=== PATIENT | female | born 1935 | race Caucasian/White ===

== ENCOUNTER 2017-07-09 19:06 | Inpatient (IN) | payer OTHER, MEDICARE ==
[~2017-07-09] VITALS: Ht 142.2 cm; Wt 88.1 kg
[~2017-07-09 19:06] MED LIST: ASPIRIN EC81 M1 PO; CIPRO 500MG TA500 MG PO; FLOMAX(MONOGRA0.4 MG PO; LEVOTHYROXINE100 MC1 PO; LIPITOR40 M1 PO; METOPROLOL SUC100 M2 PO; PYRIDIUM200 MG PO; TRAMADOL50 MG PO; ULTRAM50 M1 PO
--- NOTE | 2017-07-09 19:28 | ED NEURO DEFICIT/STROKE ---
History of Present Illness General Chief Complaint: General Adult Stated Complaint: BIBA HYPERTENSION, L SIDED WEAKNESS Source: patient, EMS Exam Limitations: no limitations Vital Signs & Intake/Output Vital Signs & Intake/Output Vital Signs Date Time Temp Pulse Resp B/P B/P Pulse O2 O2 Flow FiO2 Mean Ox Delivery Rate 07/09 2110 98.2 67 19 185/86 99 Room Air 07/09 1942 Room Air 07/09 1929 97.6 61 22 192/92 97 Room Air Triage Note: PT BIBA FROM URGENT CARE WITH C/O HYPERTENSION AND RIGHT-SIDED NUMBNESS AND WEAKNESS THAT BEGAN YESTERDAY AND BURNING PAIN FROM THE NECK TO HEAD THAT HAS BEEN FOR APPROXIMATELY 1 WEEK. ON ARRIVAL PT IS REPORTED HYPERTENSIVE 210/PALP, IRREGULAR HR. PRESENTS WITH RIGHT HAND WEAKNESS Triage Nurses Notes Reviewed? yes Onset: Abrupt Duration: day(s): (1), constant, continues in ED Timing: recent history New Weakness: RUE, RLE Vision Problem? No Baseline: alert, oriented x 3 HPI: 82-year-old female comes into the emergency room with complaints of right-sided weakness that she noticed yesterday when she woke up. Patient reports that she felt fine the night before. When she woke up yesterday she reports that she felt weak in her right arm as well as some weakness in her right lower extremity. Some difficulty with ambulation. She has had this dull posterior headache for the past week. Denies any fever or vomiting. Denies any chest pain shortness of breath. Denies any other associated symptoms. (Magdy SANON,Hunter) Allergies Coded Allergies: morphine (UNKNOWN 07/09/17) atropine (Intermediate, HALLUCINATIONS 07/09/17) codeine (Mild, NAUSEA 07/09/17) meperidine (Mild, VOMITING 07/09/17) Reconcile Medications Aspirin (Ecotrin) 81 MG ECT 1 TAB PO DAILY HEART (Reported) Atorvastatin Calcium (Lipitor) 40 MG TABLET 1 TAB PO DAILY HIGH CHOLESTROL ( Reported) Levothyroxine Sodium 0.1 MG TAB 1 TAB PO DAILY AC THYROID (Reported) Metoprolol Succinate (Metoprolol Succinate XL) 100 MG TAB.ER.24H 1 TAB PO DAILY BP (Reported) (Janna MAKI,Aren Daniels) Past History Travel History Traveled to [place] past 21 day No Medical History Any Pertinent Medical History? see below for history Neurological: migraine EENT: cataracts Cardiovascular: hypertension, hyperlipidemia, pleurisy Respiratory: NONE Gastrointestinal: NONE Hepatic: NONE Renal: nephrolithiasis Musculoskeletal: NONE Psychiatric: NONE Endocrine: hypothyroidism, obesity Blood Disorders: NONE Cancer(s): NONE Surgical History Surgical History: appendectomy, hysterectomy, tubal ligation, 13 EYE OPERATIONS Psychosocial History Who do you live with Patient/Self Services at Home None What is your primary language Slovak Tobacco Use: Quit >30 days ago ETOH Use: occasional use Family History Family History, If Any: Relation not specified for: Unobtainable family history due to adoption Hx Contributory? No (Hunter Willard) Review of Systems Review of Systems Constitutional: Reports: no symptoms. EENTM: Reports: no symptoms. Respiratory: Reports: no symptoms. Cardiovascular: Reports: no symptoms. GI: Reports: no symptoms. Genitourinary: Reports: no symptoms. Musculoskeletal: Reports: no symptoms. Skin: Reports: no symptoms. Neurological/Psychological: Reports: see HPI. Hematologic/Endocrine: Reports: no symptoms. Immunologic/Allergic: Reports: no symptoms. All Other Systems: Reviewed and Negative (Hunter Willard) Physical Exam Physical Exam General Appearance: well developed/nourished, no apparent distress, alert, awake Head: atraumatic, normal appearance Eyes: Bilateral: normal appearance, EOMI. Ears, Nose, Throat: moist mucous membrane, hearing grossly normal Neck: normal inspection Respiratory: normal breath sounds, no respiratory distress Cardiovascular: regular rate/rhythm Gastrointestinal: soft Back: normal inspection Extremities: normal range of motion Psychiatric: awake, alert, oriented x 3 Cranial Nerves: normal hearing, normal speech, PERRL Coordination/Gait: normal gait Motor/Sensory: no motor/sensory deficits Skin: intact, normal color Core Measures CVA/TIA Diagnosis: Yes Swallow Evaluation Pass Swallow eval date 07/09/17 Swallow eval time 2140 Sepsis Present: No Sepsis Focused Exam Completed? No (Hunter Willard) Progress Differential Diagnosis: acute glaucoma, Mcarthur's Palsy, drug intoxication, electrolyte imbalance, encephalitis, hypoglycemia, intracranial Hem., intracranial mass/tumor, migraine CHEEMA, seizure disorder, stroke, subarachnoid Hem., vertebrobasilar insuff. Plan of Care: Orders Procedure Date/time Status Heart Healthy Diet 07/10 B Active Patient Data 07/09 2135 Active ED Holding Orders 07/09 2123 Active Admit to inpatient 07/09 2123 Active Vital Signs 07/09 2123 Active Code Status 07/09 2123 Active Telemetry/Adjunct Faculty 07/09 1926 Active TROPONIN LEVEL 07/09 1926 Complete PARTIAL THROMBOPLASTIN TIME 07/09 1926 Complete PROTHROMBIN TIME 07/09 1926 Complete COMPREHENSIVE METABOLIC PANEL 07/09 1926 Complete CBC WITHOUT DIFFERENTIAL 07/09 1926 Complete EKG 07/09 1926 Active Current Medications Sig/Brigitte Start time Last Medication Dose Stop Time Status Admin Hydralazine HCl 5 MG ONCE ONE 07/09 2029 CAN (Apresoline) 07/09 2030 Laboratory Tests 07/09/172039: Anion Gap 15, Estimated GFR > 60, BUN/Creatinine Ratio 25.0, Glucose 98, Calcium 9.6, Total Bilirubin 1.1, AST 35, ALT 39, Alkaline Phosphatase 122, Troponin I 0.01, Total Protein 8.2, Albumin 4.1, Globulin 4.1, Albumin/Globulin Ratio 1.0 L, PT 12.4, INR 1.18, APTT 31, CBC w Diff NO MAN DIFF REQ, RBC 5.05, MCV 88.7, MCH 29.0, MCHC 32.7 L, RDW 14.5, MPV 9.6, Gran % 51.1, Lymphocytes % 37.9, Monocytes % 8.9, Eosinophils % 1.5, Basophils % 0.6, Absolute Granulocytes 3.0, Absolute Lymphocytes 2.2, Absolute Monocytes 0.5, Absolute Eosinophils 0.1, Absolute Basophils 0 Diagnostic Imaging: Viewed by Me: CT Scan. Discussed w/RAD: CT Scan. Radiology Impression: PATIENT: AUTUMN CRUZ PRESENT AGE: 82 PATIENT ACCOUNT NO: [id number] : 37 LOCATION: [facility] ORDERING PHYSICIAN: Hunter SANON SERVICE DATE: 07/09/17 EXAM TYPE: CAT - CT HEAD WO IV CONTRAST CT HEAD WITHOUT CONTRAST CLINICAL INFORMATION: Right upper arm/right leg weakness starting yesterday. COMPARISON: Head CT 12/28/2015. TECHNIQUE: Contiguous axial imaging was performed from the skull base to vertex without intravenous administration of contrast. FINDINGS: A 1.5 cm focus of hypoattenuation within the right thalamus is increased in size. There is a lacunar infarct of indeterminate age within the left bobbi that is not seen on the prior study. There is also a focus of low-attenuation within the left ponce radiata and image 30 of series 2 that is not seen previously. Similar appearing lacunar infarct within the left thalamus. Additional small chronic lacunar infarcts in the deep blackwell nuclei bilaterally are stable. There is no dense cerebral artery sign. There is no intracranial hemorrhage, hydrocephalus, extra- axial surface collection, midline shift, or other herniation pattern. The basilar cisterns are preserved. No significant soft tissue abnormality. No acute osseous abnormality. The paranasal sinuses and the mastoid air cells are well- aerated. IMPRESSION: - Increase in size of a 1.5 cm focus of hypodensity within the right thalamus and posterior limb of the right internal capsule and interval development of lacunar infarcts of indeterminate age within the left bobbi and the left ponce radiata. MRI with and without IV contrast recommended to more definitively assess these findings given focal neurologic deficit. 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 DICTATED BY: William Cook MD DATE/TIME DICTATED:07/09/172048 BARREL LOADER:ANDRÉS DATE/TIME TRANSCRIBED:07/09/172048 CONFIDENTIAL, DO NOT COPY WITHOUT APPROPRIATE AUTHORIZATION. <Electronically signed in Other Vendor System> SIGNED BY: William Cook MD 07/09/172058 Initial ED EKG: normal sinus rhythm, rate (67), nonspecific ST T wave chg (Hunter Willard) Departure Departure Disposition: STILL A PATIENT Condition: Stable Clinical Impression Primary Impression: Acute CVA (cerebrovascular accident) Referrals: Tanvir Briones MD (PCP/Family) Departure Forms: Customer Survey General Discharge Information Admission Note Spoke With: Iva Chavez MD Documentation of Exam: Documentation of any treatments & extenuating circumstances including Concerns Regarding Discharge (functional status, medication knowledge or non-compliance, living conditions, etc.) that warrant an admission rather than observation: Patient will require neurology consultation. MRI of brain. Med management. Medically not safe for discharge. Physical therapy consultation. (Hunter Willard) PA/ARMATURE WINDER REPAIR Co-Sign Statement Statement: ED Attending supervision documentation- [X] I saw and evaluated the patient. I have also reviewed all the pertinent lab results and diagnostic results. I agree with the findings and the plan of care as documented in the PA's/ARMATURE WINDER REPAIR's documentation. X[X] I have reviewed the ED Record and agree with the PA's/ARMATURE WINDER REPAIR's documentation. [] Additions or exceptions (if any) to the PAs/ARMATURE WINDER REPAIR's note and plan are summarized below: [PT TO BE ADMITTED FOR A SUBACUTE CVA, NEURO CONSULT, PT/OT, TELE] (Janna MAKI,Aren Daniels) as documented in the PA's/ARMATURE WINDER REPAIR's documentation. X[X] I have reviewed the ED Record and agree with the PA's/ARMATURE WINDER REPAIR's documentation. [] Additions or exceptions (if any) to the PAs/ARMATURE WINDER REPAIR's note and plan are summarized below: [PT TO BE ADMITTED FOR A SUBACUTE CVA, NEURO CONSULT, PT/OT, TELE] (Janna MAKI,Aren Daniels)
[2017-07-09 20:48] LABS: ABSOLUTE BASOPHIL COUNT 0 /CUMM (0.0-0.2); ABSOLUTE EOSINOPHIL COUNT 0.1 /CUMM (0.0-0.7); ABSOLUTE LYMPH COUNT 2.2 /CUMM (1.2-3.4); ABSOLUTE MONOCYTE COUNT 0.5 /CUMM (0.10-0.60); BASOPHIL % 0.6 % (0.0-2.0); EOSINOPHIL % 1.5 % (0-5); GRANULOCYTE % 51.1 % (42.2-75.2); HEMATOCRIT 44.8 % (37-47); MEAN CORPUSCULAR HGB CONC 32.7 G/DL (33.0-37.0); MEAN CORPUSCULAR VOLUME 88.7 FL (81.0-99.0); MEAN PLATELET VOLUME 9.6 FL (7.4-10.4); PLATELET COUNT 175 /CUMM (130-400); RBC DISTRIBUTION WIDTH 14.5 % (11.5-14.5); RED BLOOD CELL CT 5.05 /CUMM (4.20-5.40); WHITE BLOOD CELL COUNT 5.9 /CUMM (4.8-10.8)
--- NOTE | 2017-07-09 20:59 | CT SCAN REPORT ---
CT HEAD WITHOUT CONTRAST CLINICAL INFORMATION: Right upper arm/right leg weakness starting yesterday. COMPARISON: Head CT 12/28/2015. TECHNIQUE: Contiguous axial imaging was performed from the skull base to vertex without intravenous administration of contrast. FINDINGS: A 1.5 cm focus of hypoattenuation within the right thalamus is increased in size. There is a lacunar infarct of indeterminate age within the left bobbi that is not seen on the prior study. There is also a focus of low-attenuation within the left ponce radiata and image 30 of series 2 that is not seen previously. Similar appearing lacunar infarct within the left thalamus. Additional small chronic lacunar infarcts in the deep blackwell nuclei bilaterally are stable. There is no dense cerebral artery sign. There is no intracranial hemorrhage, hydrocephalus, extra-axial surface collection, midline shift, or other herniation pattern. The basilar cisterns are preserved. No significant soft tissue abnormality. No acute osseous abnormality. The paranasal sinuses and the mastoid air cells are well-aerated. IMPRESSION: - Increase in size of a 1.5 cm focus of hypodensity within the right thalamus and posterior limb of the right internal capsule and interval development of lacunar infarcts of indeterminate age within the left bobbi and the left ponce radiata. MRI with and without IV contrast recommended to more definitively assess these findings given focal neurologic deficit. 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
[2017-07-09 21:00] LABS: PT 12.4 SEC (9.4-12.5); PTT 31 SEC (25-37)
--- NOTE | 2017-07-09 22:37 | History & Physical ---
Aren Cooper MD 07/09/17 2236: General Information and HPI MD Statement: I have seen and personally examined AUTUMN CRUZ and documented this H&P. The patient is a 82 year old F who presented with a patient stated chief complaint of [CVA]. Source of Information: patient Exam Limitations: no limitations History of Present Illness: Patient is an 82-year-old female with a PMH significant for HTN, HLD, hypothyroidism who presents complaining of right-sided weakness. She she was in her usual state of health when she went to sleep 2 days prior to admission. She woke up one day prior to admission with right leg weakness and numbness of the right hands second and third digit. She was able to walk while grabbing onto things around her house however her right leg felt very heavy. She also notes decreased printing specialist strength on the right hand. She delayed calling an ambulance due to the cost when her symptoms did not resolve her daughter brought her to urgent care today from which she was sent to the ED. She also reports a one-week history of a dull pain in her neck radiating up to her posterior head in the occipital area due to neck spasms. She states this is a dull intermittent pain, 3/10. She states that she normally feels her neck "cracking" this has gotten worse over the past week. She denies any visual changes or she is legally blind. She has not noticed any facial asymmetry, dysarthria, aphasia. Past History Travel History Traveled to [place] past 21 day No Medical History Neurological: migraine EENT: cataracts Cardiovascular: hypertension, hyperlipidemia, pleurisy Respiratory: NONE Gastrointestinal: NONE Hepatic: NONE Renal: nephrolithiasis Musculoskeletal: NONE Psychiatric: NONE Endocrine: hypothyroidism, obesity Blood Disorders: NONE Cancer(s): NONE Surgical History Surgical History: appendectomy, hysterectomy, tubal ligation, 13 EYE OPERATIONS Past Family/Social History Family History Relations & Conditions if any Relation not specified for: Unobtainable family history due to adoption Psychosocial History Services at Home: None Primary Language: Ukrainian Smoking Status: Former Smoker (40 pack years) ETOH Use: occasional use Illicit Drug Use: denies illicit drug use Living Will? yes Functional Ability ADLs Independent: dressing, eating, toileting, bathing. Ambulation: independent IADLs Independent: shopping, housework, finances, food prep, telephone, medication admin. Review of Systems Review of Systems Constitutional: Denies: chills, fever, malaise. EENTM: Denies: double vision, visual changes. Cardiovascular: Denies: chest pain, palpitations, syncope. Respiratory: Denies: cough, short of breath, wheezing. GI: Denies: abdominal pain, bloating, diarrhea, melena, nausea, bloody stool, vomiting. Genitourinary: Reports: no symptoms. Musculoskeletal: Reports: neck pain (spasms). Skin: Reports: no symptoms. Neurological/Psychological: Reports: ataxia, numbness (R hand 2nd and 3rd digit), weakness (RLE and R hand). Denies: confusion. Hematologic/Endocrine: Reports: no symptoms. Exam & Diagnostic Data Last 24 Hrs of Vital Signs/I&O Vital Signs Date Time Temp Pulse Resp B/P B/P Pulse O2 O2 Flow FiO2 Mean Ox Delivery Rate 07/10 0023 98.9 58 20 154/72 96 Room Air 07/09 2111 98.2 67 19 185/86 99 Room Air 07/09 1943 Room Air 07/09 1930 97.6 61 22 192/92 97 Room Air Intake & Output 07/10 0800 07/10 0000 07/09 1600 Intake Total 480 180 Output Total Balance 480 180 Intake, Oral 480 180 Patient 190 lb Weight Weight Reported by Patient Measurement Method Physical Exam General Appearance Alert, Oriented X3, Cooperative, No Acute Distress HEENT Atraumatic, PERRLA, Mucous Membr. moist/pink, nystagmus Neck Supple, No JVD, No thryomegaly, +2 Carotid Pulse wo Bruit Cardiovascular Regular Rate, Normal S1, Normal S2, No Murmurs Lungs Clear to Auscultation, Normal Air Movement Abdomen Normal Bowel Sounds, Soft, No Tenderness Neurological Normal Speech, Cranial Nerves 3-12 NL, decreased R printing specialist strength, RLE 1/5, decreased sensation on RLE and R hand 2nd and 3rd digit , dysmetria, unable to walk without assistance, while walking with assistance she has ataxic gait Extremities trade LE edema BL Vascular Normal Pulses, Pulses Symmetrical Last 24 Hrs of Labs/Georges: Laboratory Tests 07/10/17 0216: Troponin I 0.02 07/09/170: Anion Gap 15, Estimated GFR > 60, BUN/Creatinine Ratio 25.0, Glucose 98, Calcium 9.6, Total Bilirubin 1.1, AST 35, ALT 39, Alkaline Phosphatase 122, Troponin I 0.01, Total Protein 8.2, Albumin 4.1, Globulin 4.1, Albumin/Globulin Ratio 1.0 L, Triglycerides 77, Cholesterol 168, LDL Cholesterol, Calc 85, HDL Cholesterol 68 H, Cholesterol/HDL Ratio 2, Vitamin B12 882, Folate > 20.0 H, TSH 13.000 H , Free T4 1.18, PT 12.4, INR 1.18, APTT 31, CBC w Diff NO MAN DIFF REQ, RBC 5.05 , MCV 88.7, MCH 29.0, MCHC 32.7 L, RDW 14.5, MPV 9.6, Gran % 51.1, Lymphocytes % 37.9, Monocytes % 8.9, Eosinophils % 1.5, Basophils % 0.6, Absolute Granulocytes 3.0, Absolute Lymphocytes 2.2, Absolute Monocytes 0.5, Absolute Eosinophils 0.1, Absolute Basophils 0 Diagnostic Data Other Results CT head\\ - Increase in size of a 1.5 cm focus of hypodensity within the right thalamus and posterior limb of the right internal capsule and interval development of lacunar infarcts of indeterminate age within the left bobbi and the left ponce radiata. MRI with and without IV contrast recommended to more definitively assess these findings given focal neurologic deficit. 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 Assessment/Plan Assessment: Patient is an 82-year-old female with a PMH significant for HTN, HLD, hypothyroidism, [id number] smoking history but quit many years ago, who presents complaining of right-sided weakness. She has right leg weakness, decreased right hand printing specialist strength, decreased sensation of her right hands second and third digit and decreased sensation of her right lower extremity. She also disclosed nystagmus, dysmetria, ataxic gait. She is well outside the window for TPA and CT scan shows evidence of lacunar infarcts. VS on exam: T 97.6, P 61, RR 22, BP 192/92, pulse ox 97% on room air Problem list #CVA #History of HTN, HLD, hypothyroidism Plan -Admit to telemetry -Continuous telemetry monitoring -MRI with and without gadolinium -Carotid Doppler ultrasound -Neurology consult placed with mortgage loan computation clerk neurologist -Permissive hypertension -Echocardiogram -Rule out ACS with troponins and EKG -Nothing by mouth pending formal swallow eval, patient passed bedside swallow eval -Aspirin 81 mg, atorvastatin 40 mg, levothyroxine 0.1 mg, hold home dose of metoprolol for now -DVT prophylaxis: ELODIA Cardozo -CODE STATUS: DNR/DNI As Ranked By This Provider Problem List: 1. Acute CVA (cerebrovascular accident) Core Measures/Misc (02/18) Acute Coronary Syndrome ACS Diagnosis: No Congestive Heart Failure Congestive Heart Failure Diagnosis No Cerebrovascular Accident CVA/TIA Diagnosis: Yes NIH Stroke Scale: Total 4 Date Last Known Well: 07/07/17 Time Last Known Well: 2200 Symptom Start Date: 07/08/17 Symptom Start Time: 0800 Swallow Evaluation Pass Current/Past Hx AFib/AFlutter No VTE (View Protocol) VTE Risk Factors Age>40 No Mechanical VTE Prophylaxis d/t N/A MechProphylax Ordered No VTE Pharm Prophylaxis d/t NA PharmProphylax ordered Sepsis (View protocol) Sepsis Present: No Chyna Joseph MD 07/10/17 0844: General Information and HPI Allergies/Medications Allergies: Coded Allergies: shellfish derived (Severe, ANAPHYLAXIS 07/10/17) morphine (UNKNOWN 07/09/17) atropine (Intermediate, HALLUCINATIONS 07/09/17) codeine (Mild, NAUSEA 07/09/17) meperidine (Mild, VOMITING 07/09/17) Home Med list Aspirin (Ecotrin*) 81 MG TABLET.DR 1 TAB PO DAILY HEART HEALTH (Reported) Atorvastatin Calcium (Lipitor) 40 MG TABLET 1 TAB PO DAILY HIGH CHOLESTROL ( Reported) Levothyroxine Sodium 100 MCG TABLET 1 TAB PO DAILY HYPOTHYROIDISM (Reported) Metoprolol Succinate 100 MG TAB.ER.24H 1 TAB PO DAILY HTN (Reported) Resident Review Statement Resident Statement: examined this patient, discussed with investigator internal affairs Other Findings: H Ms. Cruz is an 82-year-old female with past medical history of hypertension, hyperlipidemia, hypothyroidism who presented to the emergency department on 2017 complaining of right sided weakness. She also endorsed some sensation abnormalities in her right upper extremity. Second and third digit of her hand. Patient states that her symptoms began on 07/08/2017 when she woke up in the morning. She subsequently attempted to use the bathroom however felt that "her right side" did not go with her. She subsequently thought about calling the ambulance however was concerned about the charge and cost of this and so chose not to. On Sunday07/09/2017 she asked her daughter to take her to the urgent care. Initial workup at the urgent care recommended that the patient needed to be brought to the emergency department for additional workup. She also endorses neck spasms and neck pain prior to being brought into the ED. Patient did not endorse any diplopia, dysarthria. 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 She didn't endorse some subjective shortness of breath. She also endorsed some neck spasms. E: Temperature 97.6. Respirations 22. BP 192/92. Heart rate 97. General Appearance Alert, Oriented X3, Cooperative, No Acute Distress HEENT Atraumatic, PERRLA, Mucous Membr. moist/pink. Neck Supple, No JVD, No thryomegaly, +2 Carotid Pulse wo Bruit Cardiovascular Regular Rate, Normal S1, Normal S2, No Murmurs Lungs Clear to Auscultation, Normal Air Movement Abdomen Normal Bowel Sounds, Soft, No Tenderness Neurological Normal Speech, Cranial Nerves 3-12 NL RLE 2/5, decreased sensation on RLE and R hand 2nd and 3rd digit, Ataxic gait. No Dysmetria. Horizontal nystagmus Trace edema L: WBC 5.9. H&H 14.6 and 44.8. Platelets 175. Sodium 148. Potassium 3.8. BUN 15. Creatinine 0.6. I: IMPRESSION: - Increase in size of a 1.5 cm focus of hypodensity within the right thalamus and posterior limb of the right internal capsule and interval development of lacunar infarcts of indeterminate age within the left bobbi and the left ponce radiata. MRI with and without IV contrast recommended to more definitively assess these findings given focal neurologic deficit. 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 A/P Ms. Cruz is an 82-year-old female with past medical history of hypertension, hyperlipidemia, hypothyroidism who presented to the emergency department on 2017 complaining of right sided weakness. It appears the patient has multiple risk factors, in light of the fact that the patient's symptoms have not resolved appears that she may have suffered from a CVA.Her elevated pressures on admission may indicate that she has been hypertensive contributing to lacunar infarcts. #CVA. #History of hyperlipidemia, #History of hypertension, #History of hypothyroidism. #Rule out ACS We will admit the patient to telemetry service. Assess for any rhythm abnormalities: A Fib. MRI with and without gadolinium. Carotid Dopplers. Lipid panel. Neuro checks every 4 hours. Obtain neurology consultation in a.m. Continue aspirin. Continue statin. Obtain and Echcardiogram to rule out thrombus. Avoid overaggressive correction and blood pressure now allow for permissive hypertension. Serial Troponins and EKG. PT/OT Official swallow evaluation in a.m. Bedside swallow screen did not elicit any abnormalities. DVT prophylaxis Lovenox. DNR/DNI. Iva Chavez 07/10/17 0909: Attending MD Review Statement Attending Statement Attending MD Statement: examined this patient, discuss w/resident/PA/A AND P TECHNICIAN, agreed w/resident/PA/A AND P TECHNICIAN, reviewed EMR data (avail), reviewed images, amended to note Attending Assessment/Plan: CC: Right leg weakness PMH: HTN, HLD, hypothyroidism, ex-smoker Patient came to ER for right leg weakness. Patient is basically from [place], recently moved to [place] to be around her daughter. Patient is independent and daughter checks on her. On Sunday morning she noticed right leg weakness when she woke up, she thought it would go away but it did not resolved. Along with that she noticed right hand and fingers numbness and decreased printing specialist. She had mild dizziness when she tried to get up from the bed and go to bathroom felt unsteady that's when she noticed her leg was weak. Few weeks back she had neck pain and shoulder pain which she relates to this episode. She did not have any actual falls, denies any chest pain, palpitations, double vision, blurry vision, loss of consciousness or seizure-like activity. Vitals: Temperature 97.6, pulse 60s, blood pressure 192/92, respiration 22, saturating 97% on room air On exam: A O 3, cooperative, no acute distress, neck supple, JVD normal, no lymphadenopathy, mucosa moist, horizontal nystagmus, pupils equal round reactive , right lower extremity strength 3/5, right upper extremity 4/5, no facial weakness or drooping, granulomas intact, cerebellar signs negative, Romberg's and gait could not be assessed, nonedematous leg swelling, no obvious skin rashes or inflammation CVS: S1-S2, RRR. RS: Clear to auscultate bilaterally. Abdomen: Soft, NT, ND, bowel sounds present. Labs: WBC 5.9, hemoglobin 14.6, hematocrit 44.8, platelet 175, sodium 148, potassium 3.8, chloride 105, bicarbonate 28, BUN 15, creatinine 0.6, glucose 98, calcium 9.6, LFT unremarkable, troponin 0.01, INR 1.18 CT head: - Increase in size of a 1.5 cm focus of hypodensity within the right thalamus and posterior limb of the right internal capsule and interval development of lacunar infarcts of indeterminate age within the left bobbi and the left ponce radiata. MRI with and without IV contrast recommended to more definitively assess these findings given focal neurologic deficit. 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 ECG: No acute changes Assessment and plan 82-year-old independent female with past medical history of HTN, HLD, hypothyroidism, smoking presented in ER for right-sided weakness since Sunday morning. Out of window for TPA. She has weakness on examination as mentioned above. CT scan mentions stroke and right thalamus, posterior internal capsule but there is also possibility of left pontine and ponce radiata stroke, needs further evaluation with MRI. + CVA + History of HTN, HLD, hypothyroidism - Admit on telemetry - Continuous telemetry monitoring - Serial troponin and EKG - MRI brain with and without contrast - 2-D echocardiogram in a.m. - DVT prophylaxis - Obtain lipid profile - Continue aspirin and statin - Neurologic consult - Serial neuro checks - Carotid Dopplers - Adequate pain control - OT PT evaluation - Permissive hypertension - Resume antihypertensives in a.m. - Swallow evaluation Patient is very tearful about the stroke, she also depressed that her daughter is not going to visit her as she wants to avoid flu exposure. He feels lonely, and apprehensive about going to rehabilitation if indicated.
--- NOTE | 2017-07-10 07:28 | PN- Housestaff ---
See Addendum Subjective Follow-up For: Acute stroke Complaints: no complaints Tele-Events Since Last Visit: Sinus rhythm, hr <100, occasional PVCs. Subjective: I followed up and examined the patient today. She is resting comfortably in bed , and is not in any distress, and does not have any complaints. She was able to recall her history to me, which is mostly on the right side. She does not have any headache, vision changes, incontinence, worsening of weakness, numbness/ tingling, difficulty with food. She passed her formal swallow evaluation this morning. Review of Systems Constitutional: Reports: see HPI. Objective Last 24 Hrs of Vital Signs/I&O Vital Signs Date Time Temp Pulse Resp B/P B/P Pulse O2 O2 Flow FiO2 Mean Ox Delivery Rate 07/10 1427 97.4 66 20 141/88 96 Room Air 07/10 1334 97.1 65 18 171/78 02/ 0941 97.1 65 18 171/78 96 / 0610 96.8 68 20 154/62 97 Room Air 07/10 0023 98.9 58 20 154/72 96 Room Air 07/09 2111 98.2 67 19 185/86 99 Room Air 07/09 1943 Room Air / 1930 97.6 61 22 192/92 97 Room Air Intake & Output 07/10 1600 07/10 0800 / 0000 Intake Total 1000 480 180 Output Total Balance 1000 480 180 Intake, IV 1000 Intake, Oral 480 180 Patient 86.183 kg Weight Weight Reported by Patient Measurement Method Physical Exam General Appearance: Alert, Oriented X3, Cooperative, No Acute Distress Skin: No Rashes, No Breakdown, No Significant Lesion HEENT: Atraumatic, PERRLA, EOMI, Mucous Membr. moist/pink Neck: Supple, No JVD, No thryomegaly Lymphatic: Cervical nl Cardiovascular: Regular Rate, Normal S1, Normal S2, occassional irregularities in pulse Lungs: Clear to Auscultation, Normal Air Movement Abdomen: Normal Bowel Sounds, Soft, No Tenderness Neurological: Normal Speech, Normal Tone, Cranial Nerves 3-12 NL, motor: R 3/5 upper and lower side, 5/5 on left side., sensory: decreased sensation over right side of body, normal cerebellar signs, gait not examined Extremities: No Clubbing, No Cyanosis, No Edema Vascular: Normal Pulses, Pulses Symmetrical Current Medications: Current Medications Sig/Brigitte Start time Last Medication Dose Route Stop Time Status Admin Aspirin 81 MG DAILY 07/10 1000 AC PO Aspirin 0 .STK-MED ONE 07/09 2217 DC PO Aspirin 325 MG ONCE ONE 07/09 2129 DC 07/09 PO 07/09 Atorvastatin Calcium 40 MG 1700 07/10 1700 AC PO Enoxaparin Sodium 40 MG DAILY 07/10 1000 AC SC Hydralazine HCl 0 .STK-MED ONE 07/09 2116 DC .ROUTE Hydralazine HCl 5 MG ONCE ONE 07/09 2029 CAN IV 07/09 2030 Levothyroxine Sodium 0.1 MG DAILY AC 07/10 0700 AC PO Last 24 Hrs of Lab/Georges Results Last 24 Hrs of Labs/Mics: Laboratory Tests 07/10/176: Troponin I 0.02 07/09/172039: Anion Gap 15, Estimated GFR > 60, BUN/Creatinine Ratio 25.0, Glucose 98, Calcium 9.6, Total Bilirubin 1.1, AST 35, ALT 39, Alkaline Phosphatase 122, Troponin I 0.01, Total Protein 8.2, Albumin 4.1, Globulin 4.1, Albumin/Globulin Ratio 1.0 L, Triglycerides 77, Cholesterol 168, LDL Cholesterol, Calc 85, HDL Cholesterol 68 H, Cholesterol/HDL Ratio 2, Vitamin B12 882, Folate > 20.0 H, TSH 13.000 H , Free T4 1.18, PT 12.4, INR 1.18, APTT 31, CBC w Diff NO MAN DIFF REQ, RBC 5.05 , MCV 88.7, MCH 29.0, MCHC 32.7 L, RDW 14.5, MPV 9.6, Gran % 51.1, Lymphocytes % 37.9, Monocytes % 8.9, Eosinophils % 1.5, Basophils % 0.6, Absolute Granulocytes 3.0, Absolute Lymphocytes 2.2, Absolute Monocytes 0.5, Absolute Eosinophils 0.1, Absolute Basophils 0 Assessment/Plan Assessment: 82-year-old female with past medical history of hypertension, hyperlipidemia, hypothyroidism, presented to the emergency department with complaints of right- sided weakness since past 3 days, but did not come to the hospital considering the cost of ambulance and thinking this could be a TIA. She went to urgent care clinic, where she was referred to the emergency department given her symptom and severity. In the ED, she was noted to have right-sided weakness, and a CAT scan of the head did show 1.5 cm focus of hypodensity within the right thalamus and posterior limb of the right internal capsule and interval development of lacunar infarcts of indeterminate age within the left bobbi and the left coronoid radiata. She is being managed in the telemetry floor for the following issues: Acute ischemic infarct Her clinical features, radiological findings all correlate to acute ischemic CVA. She has already crossed the window for thrombolysis with TPA thus will be managed conservatively. Neurology consultation was requested. Recommendation appreciated. Patient is now on high intensity statin, aspirin and Plavix for the time being, with a plan to change her to aspirin only in the long run. FELICITA inhibitor has been started, given her hypertension which might also prevent further lacunar infarcts which commonly is attributed to uncontrolled/long- standing hypertension. Hypertension She is now on 10 mg of lisinopril daily, will monitor her blood pressure closely , and she might get further follow-up with a brownfield redevelopment site manager after her discharge. Hypothyroidism TSH appears to be 13 high, but free T4 is within normal limits 1.18 currently. This can be monitored as an outpatient. Will continue home dose of levothyroxine for now. Will continue rest of her home medications. # Diet: regular diet # DVT prophylaxis: subcutaneous Lovenox # Code status: DNR/DNI Problem List: 1. Acute CVA (cerebrovascular accident) 2. Hypothyroid 3. Hyperlipemia 4. Hypertension Pain Ratin Pain Location: - Pain Goal: Pain 4 or less Pain Plan: PRN Tomorrow's Labs & Rationales: BEP for Na (high)
--- NOTE | 2017-07-10 09:07 | ULTRASOUND REPORT ---
EXAMINATION: US DUPLEX CAROTID AND VERTEBRAL CLINICAL INFORMATION: 82-year-old female with right lower extremity weakness and right hand numbness and weakness. COMPARISON: None TECHNIQUE: Real-time ultrasound and Doppler techniques (integrating B-mode 2D vascular images, Doppler spectral analysis and color flow Doppler imaging) were utilized to interrogate the extracranial carotid and vertebral arteries bilaterally. The degree of stenosis determined by criteria similar to NASCET. FINDINGS: 1. On the right: Plaque is present at the carotid bifurcation but velocity measurements are normal and do not suggest a stenosis of greater than 50% diameter reduction in the right ICA. The vertebral artery is patent demonstrating antegrade flow. The common carotid artery velocity is 62 cm/s. The internal carotid artery velocities are 38 cm/s systolic and 14 cm/s diastolic. The external carotid artery velocity is 69 cm/s. 2. On the left: Plaque is present at the carotid bifurcation but velocity measurements are normal and do not suggest a stenosis of greater than 50% diameter reduction in the left ICA. Limited visualization of the left vertebral artery. The common carotid artery velocity is 55 cm/s. The internal carotid artery velocities are 75 cm/s systolic and 22 cm/s diastolic. The external carotid artery velocity is 55 cm/s. IMPRESSION: Plaque is present in the internal carotid arteries but velocity measurements are normal and there is no evidence to suggest a hemodynamically significant stenosis of greater than 50% diameter reduction.
--- NOTE | 2017-07-10 09:09 | Admission Certification ---
Admission Certification Certification Statement - As attending physician, I certify that at the time of - admission, based on clinical presentation, severity of - symptoms, need for further diagnostic testing and - therapeutic interventions, and risk of adverse outcomes - without in-hospital treatment, in my clinical assessment, - this patient requires an acute hospital stay for a minimum - of two nights or longer. I have also considered psychsocial - factors such as support system, advanced age, financial - issues, cognitive issues, and failed out-patient treatments, - past re-admission history, safety of patient, and lack of - compliance as applicable. Specific rationale supporting this admission is: CVA
--- NOTE | 2017-07-10 11:10 | Cons- Neurology ---
General Information and HPI Consulting Request Date of Consult: 07/10/17 Requested By: Laila MAKI,Michelle Reason for Consult: new right-sided weakness Source of Information: patient Exam Limitations: no limitations History of Present Illness: 82-year-old right-handed woman who presents with a first time right- sided weakness. 2 days ago she developed sudden right leg weakness at her elderly living facility. being that she did not want an ambulance to be called on her behalf she didn't tell anybody and hoped it would resolve on its own. However later that day she also developed weakness and numbness in her right hand. That got her worried and so she will seek out help and ended up in the hospital. She was found to have changes on the CAT scan suggestive of a new infarction. He is known for hypertension but not hyperlipidemia or or diabetes. Not know her family history and has never smoked. All other focal deficits. As have very poor eyesight since . Of importance as that she noted that the stroke was preceded by one week of burning sharp neck pain. Allergies/Medications Allergies: Coded Allergies: shellfish derived (Severe, ANAPHYLAXIS 07/10/17) morphine (UNKNOWN 07/09/17) atropine (Intermediate, HALLUCINATIONS 07/09/17) codeine (Mild, NAUSEA 07/09/17) meperidine (Mild, VOMITING 07/09/17) Home Med List: Aspirin (Ecotrin) 81 MG ECT 1 TAB PO DAILY HEART (Reported) Atorvastatin Calcium (Lipitor) 40 MG TABLET 1 TAB PO DAILY HIGH CHOLESTROL ( Reported) Levothyroxine Sodium 0.1 MG TAB 1 TAB PO DAILY AC THYROID (Reported) Metoprolol Succinate (Metoprolol Succinate XL) 100 MG TAB.ER.24H 1 TAB PO DAILY BP (Reported) Current Medications: Current Medications Sig/Brigitte Start time Last Medication Dose Route Stop Time Status Admin Aspirin 81 MG DAILY 07/10 1000 AC 07/10 PO 0921 Aspirin 0 .STK-MED ONE 07/09 2217 DC PO Aspirin 325 MG ONCE ONE 07/09 2129 DC 07/09 PO 07/09 Atorvastatin Calcium 40 MG 1700 07/10 1700 AC PO Enoxaparin Sodium 40 MG DAILY 07/10 1000 AC 07/10 SC 0921 Hydralazine HCl 0 .STK-MED ONE 07/09 2116 DC .ROUTE Hydralazine HCl 5 MG ONCE ONE 07/09 2029 CAN IV 07/09 2030 Levothyroxine Sodium 0.1 MG DAILY AC 07/10 0700 AC 07/10 PO 0737 Review of Systems Review of Systems: As per HPI otherwise negative. Past History Travel History Traveled to [place] past 21 day No Medical History Neurological: migraine EENT: cataracts Cardiovascular: hypertension, hyperlipidemia, pleurisy Respiratory: NONE Gastrointestinal: NONE Hepatic: NONE Renal: nephrolithiasis Musculoskeletal: NONE Psychiatric: NONE Endocrine: hypothyroidism, obesity Blood Disorders: NONE Cancer(s): NONE Surgical History Surgical History: appendectomy, hysterectomy, tubal ligation, 13 EYE OPERATIONS Family History Relations & Conditions If Any: Relation not specified for: Unobtainable family history due to adoption Psychosocial History Services at Home: None Primary Language: [place] Smoking Status: Former Smoker (40 pack years) ETOH Use: occasional use Illicit Drug Use: denies illicit drug use Living Will? yes Functional Ability ADLs Independent: dressing, eating, toileting, bathing. Ambulation: independent IADLs Independent: shopping, housework, finances, food prep, telephone, medication admin. Exam & Diagnostic Data Vital Signs and I&O Vital Signs Date Time Temp Pulse Resp B/P B/P Pulse O2 O2 Flow FiO2 Mean Ox Delivery Rate 07/10 0941 97.1 65 18 171/78 96 07/10 0610 96.8 68 20 154/62 97 Room Air 07/10 0023 98.9 58 20 154/72 96 Room Air 07/09 2111 98.2 67 19 185/86 99 Room Air 07/09 1943 Room Air 07/09 1930 97.6 61 22 192/92 97 Room Air Intake & Output 07/10 1600 07/10 0800 07/10 0000 Intake Total 480 180 Output Total Balance 480 180 Intake, Oral 480 180 Patient 190 lb Weight Weight Reported by Patient Measurement Method Physical Exam: General: The patient is in no distress. Pleasant and cooperative. MSE: Alert and oriented 3. Good attention and concentration. Good short-term memory and fund of knowledge reflected through our conversation. Language is fluent with good comprehension and repetition. Cardiovascular: S1 and S2 are normal, regular rate and rhythm, and normal pedal pulses. Vision: Fundoscopic exam does not reveal any abnormalties. Visual osei are intact. Neurological: Extra ocular movements intact, NOEMI, face is symmetric, tongue midline, uvula raises equally in the midline, V1-V3 sensation to touch is intact and equal bilaterallty, sternocleidomastoid and trapezius are strong on both sides, muscles of mastication are strong. No dysarthria noted. Motor exam reveals no abnormality of strength. strength in the proximal right leg is 3 out of 5 and there is also some right arm drift with 3 out of 5 intrinsic muscle weakness in the hand. Otherwise left side strength is 5-5 throughout the distribution distally and proximally. Sensory exam field numbness on the right side of the body. Reflexes are symmetric bilaterally with upgoing toe on the right. Cerebellar exam does not reveal any dysmetria. gait deferred. Last 48 Hours of Lab Results: Laboratory Tests 07/10 07/09 0216 2040 Chemistry Sodium (137 - 145 mmol/L) 148 H Potassium (3.5 - 5.1 mmol/L) 3.8 Chloride (98 - 107 mmol/L) 105 Carbon Dioxide (22 - 30 mmol/L) 28 Anion Gap (5 - 16) 15 BUN (7 - 17 mg/dL) 15 Creatinine (0.5 - 1.0 mg/dL) 0.6 Estimated GFR (>60 ml/min) > 60 BUN/Creatinine Ratio (7 - 25 %) 25.0 Glucose (65 - 99 mg/dL) 98 Calcium (8.4 - 10.2 mg/dL) 9.6 Total Bilirubin (0.2 - 1.3 mg/dL) 1.1 AST (14 - 36 U/L) 35 ALT (9 - 52 U/L) 39 Alkaline Phosphatase (<127 U/L) 122 Troponin I (< 0.11 ng/ml) 0.02 0.01 Total Protein (6.3 - 8.2 g/dL) 8.2 Albumin (3.5 - 5.0 g/dL) 4.1 Globulin (1.9 - 4.2 gm/dL) 4.1 Albumin/Globulin Ratio (1.1 - 2.2 %) 1.0 L Triglycerides (<150 mg/dL) 77 Cholesterol (<200 MG/DL) 168 LDL Cholesterol, Calc (65 - 129 mg/dL) 85 HDL Cholesterol (40 - 60 mg/dL) 68 H Cholesterol/HDL Ratio (0.00 - 4.23 %) 2 Vitamin B12 (239 - 931 pg/mL) 882 Folate (2.76 - 20.0 ng/mL) > 20.0 H TSH (0.270 - 4.200 uIU/mL) 13.000 H Free T4 (0.85 - 1.93 ng/dL) 1.18 Coagulation PT (9.4 - 12.5 SEC) 12.4 INR (0.90 - 1.19) 1.18 APTT (25 - 37 SEC) 31 Hematology CBC w Diff NO MAN DIFF REQ WBC (4.8 - 10.8 /CUMM) 5.9 RBC (4.20 - 5.40 /CUMM) 5.05 Hgb (12.0 - 16.0 G/DL) 14.6 Hct (37 - 47 %) 44.8 MCV (81.0 - 99.0 FL) 88.7 MCH (27.0 - 31.0 PG) 29.0 MCHC (33.0 - 37.0 G/DL) 32.7 L RDW (11.5 - 14.5 %) 14.5 Plt Count (130 - 400 /CUMM) 175 MPV (7.4 - 10.4 FL) 9.6 Gran % (42.2 - 75.2 %) 51.1 Lymphocytes % (20.5 - 51.1 %) 37.9 Monocytes % (1.7 - 9.3 %) 8.9 Eosinophils % (0 - 5 %) 1.5 Basophils % (0.0 - 2.0 %) 0.6 Absolute Granulocytes (1.4 - 6.5 /CUMM) 3.0 Absolute Lymphocytes (1.2 - 3.4 /CUMM) 2.2 Absolute Monocytes (0.10 - 0.60 /CUMM) 0.5 Absolute Eosinophils (0.0 - 0.7 /CUMM) 0.1 Absolute Basophils (0.0 - 0.2 /CUMM) 0 Imaging/Other Studies: FINDINGS: A 1.5 cm focus of hypoattenuation within the right thalamus is increased in size. There is a lacunar infarct of indeterminate age within the left bobbi that is not seen on the prior study. There is also a focus of low-attenuation within the left ponce radiata and image 30 of series 2 that is not seen previously. Similar appearing lacunar infarct within the left thalamus. Additional small chronic lacunar infarcts in the deep blackwell nuclei bilaterally are stable. There is no dense cerebral artery sign. There is no intracranial hemorrhage, hydrocephalus, extra-axial surface collection, midline shift, or other herniation pattern. The basilar cisterns are preserved. No significant soft tissue abnormality. No acute osseous abnormality. The paranasal sinuses and the mastoid air cells are well-aerated. IMPRESSION: - Increase in size of a 1.5 cm focus of hypodensity within the right thalamus and posterior limb of the right internal capsule and interval development of lacunar infarcts of indeterminate age within the left bobbi and the left ponce radiata. MRI with and without IV contrast recommended to more definitively assess these findings given focal neurologic deficit. 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 Carotid Duplex>> IMPRESSION: Plaque is present in the internal carotid arteries but velocity measurements are normal and there is no evidence to suggest a hemodynamically significant stenosis of greater than 50% diameter reduction. EKG NSR with PVCs. Assessment/Plan Assessment: This is a very pleasant 82-year-old woman with according to her first time infarction. The CAT scan suggests that this may not be her first lacunar infarction. Although it could be that we see on the current CAT scan is really a manifestation of an embolic stroke into both hemispheres. Was the case on MRI would need to seek out atrial fibrillation. Her complaint of preceding burnding neck pain buys her and MRA of the neck. Recommendations: 1. Complete MRI of the brain without contrast. MRA of neck and head. 2. Complete echo ruling out a thrombus within the ventricles. 3. Telemetry, looking for atrial fibrillation. If not found would need to go on and reveal monitor for 3 months. And would suggest empirical anticoagulation if pattern and MRI suggestive of embolic phenomenon from the heart. 4. For now place on aspirin 81 mg and Plavix 75 mg. Also ensure she is on Lipitor 80 mg and potentially an FELICITA inhibitor or ARB. 5. PT/OT and swallow evaluation. Will likely need STR. Consult Acknowledgment - Thank you for your consult request.
[2017-07-10 17:21] VITALS: BP 190/90
[2017-07-10 19:28] VITALS: BP 154/96
--- NOTE | 2017-07-10 21:37 | Discharge Summary ---
Visit Information Visit Dates Admission Date: 07/09/17 Discharge Date: 07/12/17 Hospital Course Course Attending Physician: Michelle Ulloa MD Primary Care Physician: Tanvir Briones MD Hospital Course: 82-year-old female with past medical history of hypertension, hyperlipidemia, hypothyroidism, presented to the emergency department with complaints of right- sided weakness since past 3 days [facility], but did not come to the hospital considering the cost of ambulance and thinking this could be a TIA. She went to urgent care clinic, where she was referred to the emergency department given her symptom and severity. In the ED, she was noted to have right-sided weakness, and a CAT scan of the head did show 1.5 cm focus of hypodensity within the right thalamus and posterior limb of the right internal capsule and interval development of lacunar infarcts of indeterminate age within the left bobbi and the left coronoid radiata. She was managed conservatively in the telemetry floor for the following issues: # Acute ischemic infarct Her clinical features, radiological findings all correlated to acute ischemic CVA. She had already crossed the window for thrombolysis with TPA thus was managed conservatively. Neurology consultation was requested and recommendation followed. Patient is now on high intensity statin, aspirin and Plavix for the time being, with a plan to change her to aspirin only in the long run. FELICITA inhibitor has been started, given her hypertension which might also prevent further lacunar infarcts which commonly is attributed to uncontrolled/long- standing hypertension. Physical therapy worked with her, and suggested further care at a short-term rehabilitation facility. # Hypertension She is now on 10 mg of lisinopril daily, and she needs follow-up with a shell coremaker after her discharge. Her blood pressure on 07/12/2017 he was high with 190/110, which slowly settled down in a few hours after taking her regular medications early for that day. She has been advised to watch and record her blood pressure and follow-up with shell coremaker after discharge. # Hypothyroidism TSH was high at 13, but free T4 was within normal limits 1.18 during this admission. Will changed the home dose of levothyroxine from 100 mcg to 125 mcg. This can be monitored as an outpatient. Rest of her home medications were continued. # Diet: regular diet (She passed the formal swallow evaluation) # DVT prophylaxis: subcutaneous Lovenox # Code status: DNR/DNI Allergies: Coded Allergies: shellfish derived (Severe, ANAPHYLAXIS 07/10/17) morphine (UNKNOWN 07/09/17) atropine (Intermediate, HALLUCINATIONS 07/09/17) codeine (Mild, NAUSEA 07/09/17) meperidine (Mild, VOMITING 07/09/17) Significant Procedures: Head CT done on 07/09/17: FINDINGS: A 1.5 cm focus of hypoattenuation within the right thalamus is increased in size. There is a lacunar infarct of indeterminate age within the left bobbi that is not seen on the prior study. There is also a focus of low-attenuation within the left ponce radiata and image 30 of series 2 that is not seen previously. Similar appearing lacunar infarct within the left thalamus. Additional small chronic lacunar infarcts in the deep blackwell nuclei bilaterally are stable. There is no dense cerebral artery sign. There is no intracranial hemorrhage, hydrocephalus, extra-axial surface collection, midline shift, or other herniation pattern. The basilar cisterns are preserved. No significant soft tissue abnormality. No acute osseous abnormality. The paranasal sinuses and the mastoid air cells are well-aerated. IMPRESSION: - Increase in size of a 1.5 cm focus of hypodensity within the right thalamus and posterior limb of the right internal capsule and interval development of lacunar infarcts of indeterminate age within the left bobbi and the left ponce radiata. MRI with and without IV contrast recommended to more definitively assess these findings given focal neurologic deficit. 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 DICTATED BY: William Cook MD DATE/TIME DICTATED:07/09/172048 GRAIN MERCHANDISER:ANDRÉS DATE/TIME TRANSCRIBED:07/09/172048 Carotid Doppler Study of Carotid arteries done on 07/10/17: FINDINGS: 1. On the right: Plaque is present at the carotid bifurcation but velocity measurements are normal and do not suggest a stenosis of greater than 50% diameter reduction in the right ICA. The vertebral artery is patent demonstrating antegrade flow. The common carotid artery velocity is 62 cm/s. The internal carotid artery velocities are 38 cm/s systolic and 14 cm/s diastolic. The external carotid artery velocity is 69 cm/s. 2. On the left: Plaque is present at the carotid bifurcation but velocity measurements are normal and do not suggest a stenosis of greater than 50% diameter reduction in the left ICA. Limited visualization of the left vertebral artery. The common carotid artery velocity is 55 cm/s. The internal carotid artery velocities are 75 cm/s systolic and 22 cm/s diastolic. The external carotid artery velocity is 55 cm/s. IMPRESSION: Plaque is present in the internal carotid arteries but velocity measurements are normal and there is no evidence to suggest a hemodynamically significant stenosis of greater than 50% diameter reduction. DICTATED BY: Rubin Ashraf DO DATE/TIME DICTATED:07/10/17900 GRAIN MERCHANDISER:ANDRÉS DATE/TIME TRANSCRIBED:07/10/17900 MRI done on 07/11/17: FINDINGS: BRAIN MRI: A 1 cm ovoid focus of restricted diffusion is seen in the left posterior ponce radiata, correlating with an acute lacunar infarct. This is superimposed upon fairly extensive chronic microvascular ischemic change with areas of chronic lacunar infarction seen in the basal ganglia, thalami, and left paramedian bobbi. The ventricles and sulcal spaces are diffusely prominent due to chronic volume loss. No intracranial mass, hemorrhage, or midline shift is apparent. Mild mucosal thickening is noted in the ethmoid air cells and there is patchy opacification of bilateral mastoid air cells. BRAIN MRA: Expected flow-related signal seen in the major intracranial arteries. No focal flow-limiting stenosis, proximal large vessel occlusion, or discrete saccular intracranial aneurysm is identified. NECK MRA: There is probably a common origin of the innominate and left common carotid arteries. The right vertebral artery is dominant, and both are widely patent from their ostia until their entry into the skull base. Both common carotid arteries are normal in course and caliber. No significant internal carotid artery stenosis is appreciated. IMPRESSION: 1. Small acute lacunar infarct in the left ponce radiata, superimposed upon fairly extensive chronic small vessel ischemic changes. 2. Normal neck and brain MRAs. DICTATED BY: Ina Epstein MD DATE/TIME DICTATED:07/11/171645 GRAIN MERCHANDISER:ANDRÉS DATE/TIME TRANSCRIBED:07/11/171645 Disposition Summary Disposition Principal Diagnosis: Acute CVA (Ischemic) Additional Diagnosis: hypertension, hyperlipidemia, hypothyroidism Discharge Disposition: SNF Discharge Instructions General Discharge Information Code Status: Do Not Resucitate/Intubat Patient's Diet: Heart healthy diet Patient's Activity: As tolerated. Requires physical therapy. Follow-Up Instructions/Appts: Please follow-up with your neurologist AND shell coremaker and PCP after discharge. Please return to emergency if symptoms worsen. Medications at Discharge Discharge Medications: Stop taking the following medications: Levothyroxine Sodium (Levothyroxine Sodium) 100 MCG TABLET ORAL DAILY Continue taking these medications: Metoprolol Succinate (Metoprolol Succinate) 100 MG TAB.ER.24H 1 Tablet ORAL DAILY Comments: Last Taken:07/12/17 Time:9AM Aspirin (Ecotrin*) 81 MG TABLET.DR 1 Tablet ORAL DAILY Comments: Last Taken:07/12/17 Time:9AM Start taking the following new medications: Clopidogrel Bisulfate (Plavix) 75 MG TABLET 75 Milligram ORAL DAILY Qty = 30 No Refills Comments: Last Taken:07/12/17 Time:9AM Lisinopril (Lisinopril) 10 MG TABLET 10 Milligram ORAL DAILY as needed for HTN Qty = 30 Refills = 1 Comments: Last Taken:07/12/17 Time:9AM Levothyroxine Sodium (Synthroid) 125 MCG TABLET 1 Tablet ORAL DAILY BEFORE BREAKFAST Qty = 60 Refills = 1 Comments: Last Taken:07/12/17 Time:6AM The following medications have been changed: Old: Atorvastatin Calcium (Lipitor) 40 MG TABLET 1 Tablet ORAL DAILY New: Atorvastatin Calcium (Lipitor) 40 MG TABLET 2 Tablet ORAL DAILY Qty = 60 Comments: Last Taken:07/11/17 Time:5PM Copies To: Maria Del Carmen MAKI,Tra; Anselmo MAKI,Tanvir Varela; Dez MAKI PHD,Niko Benjamin Attending MD Review Statement Documenting Attending: Michelle Ulloa MD Other Findings: Discharged in stable condition
[2017-07-10 22:28] VITALS: BP 154/88
[2017-07-11 07:08] VITALS: BP 142/70
--- NOTE | 2017-07-11 07:33 | PN- Housestaff ---
Subjective Follow-up For: Acute stroke Complaints: no complaints Tele-Events Since Last Visit: Regular sinus rhythm with some PVCs, rate in 70s Subjective: I followed up and examined the patient today. She was resting comfortably in bed, not in apparent distress, and did not have any complaints. In fact, she mentioned that she feels that her right side is much stronger than yesterday. She does not have any numbness over her face anymore. Vital signs stable, no nursing issues reported overnight. Review of Systems Constitutional: Reports: see HPI. Objective Last 24 Hrs of Vital Signs/I&O Vital Signs Date Time Temp Pulse Resp B/P B/P Pulse O2 O2 Flow FiO2 Mean Ox Delivery Rate 07/11 1321 Room Air 07/11 0937 81 07/11 0708 98.3 58 20 142/70 96 Room Air 07/10 2228 98.0 76 20 154/88 96 Room Air 07/10 1928 72 154/96 92 Room Air 07/10 1800 Room Air 07/10 1721 97.9 94 20 190/90 97 07/10 1609 98.1 72 16 191/84 96 Room Air 07/10 1555 152/84 07/10 1427 97.4 66 20 141/88 96 Room Air Intake & Output 07/11 1600 07/11 0800 07/11 0000 Intake Total 110 400 Output Total Balance 110 400 Intake, IV 10 Intake, Oral 100 400 Number 0 Bowel Movements Patient 88.139 kg Weight Weight Bed scale Measurement Method Physical Exam General Appearance: Alert, Oriented X3, Cooperative, No Acute Distress, obese Other Physical Findings: Skin: No Rashes, No Breakdown, No Significant Lesion HEENT: Atraumatic, PERRLA, EOMI, Mucous Membr. moist/pink Neck: Supple, No JVD, No thryomegaly Lymphatic: Cervical nl Cardiovascular: Regular Rate, Normal S1, Normal S2, occassional irregularities in pulse Lungs: Clear to Auscultation, Normal Air Movement Abdomen: Normal Bowel Sounds, Soft, No Tenderness Neurological: Normal Speech, Normal Tone, Cranial Nerves 3-12 NL, motor: R 3+/5 upper and lower side, 5/5 on left side., sensory: decreased sensation over right side of body, sensation over the face is normal now (c.f. yesterday). Normal cerebellar signs, gait not examined Extremities: No Clubbing, No Cyanosis, No Edema Vascular: Normal Pulses, Pulses Symmetrical Current Medications: Current Medications Sig/Brigitte Start time Last Medication Dose Route Stop Time Status Admin Aspirin 81 MG DAILY 07/10 1000 AC 07/11 PO 0936 Atorvastatin Calcium 80 MG 1700 07/10 1700 AC 07/10 PO 1754 Clopidogrel Bisulfate 75 MG DAILY 07/10 1315 AC 07/11 PO 0936 Enoxaparin Sodium 40 MG DAILY 07/10 1000 AC 07/11 SC 0936 Influenza Virus 0.5 ML ONCE ONE 07/10 2044 DC Vaccine IM 07/10 2045 Levothyroxine Sodium 0.1 MG DAILY AC 07/10 0700 AC 07/11 PO 0632 Lisinopril 10 MG DAILY 07/10 1310 AC 07/11 PO 0937 Metoprolol Succinate 100 MG DAILY 07/11 1000 AC 07/11 PO 0937 Last 24 Hrs of Lab/Georges Results Last 24 Hrs of Labs/Mics: Laboratory Tests 07/11/17 0703: Anion Gap 10, Estimated GFR > 60, BUN/Creatinine Ratio 24.3 Assessment/Plan Assessment: 82-year-old female with past medical history of hypertension, hyperlipidemia, hypothyroidism, presented to the emergency department with complaints of right- sided weakness since past 3 days, but did not come to the hospital considering the cost of ambulance and thinking this could be a TIA. She went to urgent care clinic, where she was referred to the emergency department given her symptom and severity. In the ED, she was noted to have right-sided weakness, and a CAT scan of the head did show 1.5 cm focus of hypodensity within the right thalamus and posterior limb of the right internal capsule and interval development of lacunar infarcts of indeterminate age within the left bobbi and the left coronoid radiata. She is being managed in the telemetry floor for the following issues: Acute ischemic infarct Her clinical features, radiological findings all correlate to acute ischemic CVA. She has already crossed the window for thrombolysis with TPA thus will be managed conservatively. Neurology consultation was requested. Recommendation appreciated. Patient is now on high intensity statin, aspirin and Plavix for the time being, with a plan to change her to aspirin only in the long run. FELICITA inhibitor has been started, given her hypertension which might also prevent further lacunar infarcts which commonly is attributed to uncontrolled/long- standing hypertension. Patient is getting an MRI, MRA today, awaiting results. Hypertension She is now on 10 mg of lisinopril daily, will monitor her blood pressure closely , and she might get further follow-up with a rn perinatal after her discharge. Her blood pressure today is 142/70. Hypothyroidism TSH appears to be 13 high, but free T4 is within normal limits 1.18 currently. This can be monitored as an outpatient. Will change home dose of levothyroxine 100 mcg to 125 mcg daily. Will continue rest of her home medications. # Diet: regular diet # DVT prophylaxis: subcutaneous Lovenox # Code status: DNR/DNI Problem List: 1. Acute CVA (cerebrovascular accident) 2. Hypertension 3. Hypothyroid Pain Ratin Pain Location: - Pain Goal: Pain 4 or less Pain Plan: prn Tomorrow's Labs & Rationales: -
[2017-07-11] MEDS ORDERED: PLAVIX75 M1 PO (10:34)
[2017-07-11] MEDS ORDERED: LIPITOR40 M1 PO (10:34)
[2017-07-11] MEDS ORDERED: LISINOPRIL10 M1 PO (10:34)
[2017-07-11 14:47] VITALS: BP 130/70
--- NOTE | 2017-07-11 16:18 | ECHOCARDIOGRAM REPORT ---
AUTUMN CRUZ Age: 82 : 1935 Gender: F Exam Date: 07/10/2017 18:20 Exam Location: [address] Ht (in): 56 Wt (lb): 190 BSA: 1.90 BP: 154 / 62 Ordering Physician: Aren Cooper MD Referring Physician: Alfonso Brennan MD Technologist: Nataliia Gomez [facility] Room Number: 174-02 Indications: STROKE Rhythm: Sinus Technical Quality: Technically difficult study FINDINGS Left Ventricle Normal size left ventricle. Mild concentric left ventricular hypertrophy. Normal left ventricular ejection fraction visually estimated at >60%. Abnormal relaxation filling pattern of the left ventricle for age (stage 1 diastolic dysfunction). No obvious regional wall motion abnormalities. Right Ventricle Normal right ventricular size and function. Right Atrium Normal right atrial size. Left Atrium Normal left atrial size. Mitral Valve Mild to moderate mitral annular calcification. Trace mitral regurgitation. Aortic Valve Diffuse thickening (sclerosis) of the aortic valve cusps without reduced excursion. No aortic stenosis. No aortic regurgitation. Tricuspid Valve Tricuspid valve not well visualized, grossly normal. Trace tricuspid regurgitation. No evidence of pulmonary hypertension. Pulmonic Valve Pulmonic valve not well visualized, grossly normal. Pericardium No pericardial effusion. Great Vessels Normal size aortic root. CONCLUSIONS Normal size left ventricle. Mild concentric left ventricular hypertrophy. Normal left ventricular ejection fraction visually estimated at > 60%. Abnormal relaxation filling pattern of the left ventricle for age (stage 1 diastolic dysfunction). Trace mitral regurgitation. Trace tricuspid regurgitation. Alfonso Brennan M.D. (Electronically Signed) Final Date: 11 July 2017 16:18 MEASUREMENTS (Male / Female) Normal Values 2D ECHO LV Diastolic Diameter PLAX 4.1 cm 4.2 - 5.9 / 3.9 - 5.3 cm LV Systolic Diameter PLAX 2.7 cm 2.1 - 4.0 cm LV Fractional Shortening PLAX 34.1 % 25 - 46 % LV Ejection Fraction 2D Teich 63.6 % IVS Diastolic Thickness 1.3 cm LVPW Diastolic Thickness 1.3 cm LV Relative Wall Thickness 0.6 RV Internal Dim ED PLAX 2.2 cm 1.9 - 3.8 cm LVOT Diameter 2.1 cm Aortic Root Diameter 3.2 cm LA Systolic Diameter LX 4.0 cm 3.0 - 4.0 / 2.7 - 3.8 cm LA Volume 23.0 cm 18 - 58 / 22 - 52 cm Ascending Aorta Diameter 3.4 cm DOPPLER AV Peak Velocity 163.0 cm/s AV Peak Gradient 10.6 mmHg AV Mean Velocity 115.0 cm/s AV Mean Gradient 6.0 mmHg AV Velocity Time Integral 28.5 cm LVOT Peak Velocity 90.2 cm/s LVOT Peak Gradient 3.3 mmHg LVOT Mean Velocity 59.5 cm/s LVOT Mean Gradient 2.0 mmHg LVOT Velocity Time Integral 14.5 cm LVOT Stroke Volume 50.2 cm AV Area Cont Eq vti 1.8 cm AV Area Cont Eq pk 1.9 cm MV Peak Velocity 113.0 cm/s MV Peak Gradient 5.1 mmHg MV Mean Velocity 52.0 cm/s MV Mean Gradient 1.0 mmHg Mitral E Point Velocity 48.9 cm/s Mitral A Point Velocity 88.8 cm/s Mitral E to A Ratio 0.6 MV PHT Velocity 62.1 cm/s MV Deceleration Stewart 244.0 cm/s MV Pressure Half Time 76.4 ms MV Area PHT 2.9 cm MV Deceleration Time 296.0 ms TR Peak Velocity 217.0 cm/s TR Peak Gradient 18.8 mmHg Right Atrial Pressure 5.0 mmHg Pulmonary Artery Systolic Pressu 23.8 mmHg Right Ventricular Systolic Press 23.8 mmHg PV Peak Velocity 112.0 cm/s PV Peak Gradient 5.0 mmHg PV Mean Velocity 73.9 cm/s PV Mean Gradient 3.0 mmHg PV Velocity Time Integral 18.4 cm LV E' Lateral Velocity 6.5 cm/s Mitral E to LV E' Lateral Ratio 7.5 LV E' Septal Velocity 4.4 cm/s Mitral E to LV E' Septal Ratio 11.1
--- NOTE | 2017-07-11 16:57 | MRI REPORT ---
EXAMINATION: MR BRAIN WITHOUT CONTRAST MR ANGIOGRAPHY BRAIN WITHOUT CONTRAST MR ANGIOGRAPHY NECK WITHOUT CONTRAST CLINICAL INFORMATION: 82-year-old woman with improving right-sided weakness. COMPARISON: 07/09/[address] TECHNIQUE: Multiplanar, multisequence MR imaging was performed through the brain without the use of intravenous gadolinium. In addition, [id number] MR angiography was performed through the neck and brain without the use of intravenous contrast, and source images were reviewed along with rotating MIPs. Stenoses are assessed in accordance with NASCET criteria unless otherwise indicated. FINDINGS: BRAIN MRI: A 1 cm ovoid focus of restricted diffusion is seen in the left posterior ponce radiata, correlating with an acute lacunar infarct. This is superimposed upon fairly extensive chronic microvascular ischemic change with areas of chronic lacunar infarction seen in the basal ganglia, thalami, and left paramedian bobbi. The ventricles and sulcal spaces are diffusely prominent due to chronic volume loss. No intracranial mass, hemorrhage, or midline shift is apparent. Mild mucosal thickening is noted in the ethmoid air cells and there is patchy opacification of bilateral mastoid air cells. BRAIN MRA: Expected flow-related signal seen in the major intracranial arteries. No focal flow-limiting stenosis, proximal large vessel occlusion, or discrete saccular intracranial aneurysm is identified. NECK MRA: There is probably a common origin of the innominate and left common carotid arteries. The right vertebral artery is dominant, and both are widely patent from their ostia until their entry into the skull base. Both common carotid arteries are normal in course and caliber. No significant internal carotid artery stenosis is appreciated. IMPRESSION: 1. Small acute lacunar infarct in the left ponce radiata, superimposed upon fairly extensive chronic small vessel ischemic changes. 2. Normal neck and brain MRAs.
[2017-07-11 22:08] VITALS: BP 130/80
[2017-07-12 06:57] VITALS: BP 160/90
[2017-07-12 06:59] VITALS: BP 190/110
--- NOTE | 2017-07-12 07:35 | PN- Housestaff ---
Jessie MAKI,Robbin 07/12/17 0735: Subjective Follow-up For: Acute stroke Complaints: no complaints Tele-Events Since Last Visit: Regular sinus rhythm, some PVCs noted overnight, heart rate ranging from 60s to 90s. Subjective: I followed up and examined the patient today. She is resting comfortably in her bed, does not have any complaints, does not appear to be in any distress. Her motor strength on the right side just about the same as yesterday. Vital signs normal, except that her blood pressure this morning was elevated at 190/110 and she received her blood pressure medications earlier than usual. NOT symptomatic or hemodynamically unstable. Review of Systems Constitutional: Reports: no symptoms. Objective Last 24 Hrs of Vital Signs/I&O Vital Signs Date Time Temp Pulse Resp B/P B/P Pulse O2 O2 Flow FiO2 Mean Ox Delivery Rate 07/12 1357 62 132/76 07/12 0744 61 190/110 07/12 0659 61 190/110 07/12 0657 97.9 62 20 160/90 96 Room Air 07/12 0539 62 160/90 07/11 2208 98.3 98 20 130/80 95 Room Air Intake & Output 07/12 1600 07/12 0800 07/12 0000 Intake Total 380 120 Output Total 250 Balance 380 -130 Intake, Oral 380 120 Output, Urine 250 Physical Exam General Appearance: Alert, Oriented X3, Cooperative, No Acute Distress, obese Other Physical Findings: Skin: No Rashes, No Breakdown, No Significant Lesion HEENT: Atraumatic, PERRLA, EOMI, Mucous Membr. moist/pink Neck: Supple, No JVD, No thryomegaly Lymphatic: Cervical nl Cardiovascular: Regular Rate, Normal S1, Normal S2, occassional irregularities in pulse Lungs: Clear to Auscultation, Normal Air Movement Abdomen: Normal Bowel Sounds, Soft, No Tenderness Neurological: Normal Speech, Normal Tone, Cranial Nerves 3-12 NL, motor: R 3+/5 upper and lower side, 5/5 on left side., sensory: decreased sensation over right side of body, sensation over the face is normal now (same as yesterday). Normal cerebellar signs, gait not examined. Extremities: No Clubbing, No Cyanosis, No Edema Vascular: Normal Pulses, Pulses Symmetrical Current Medications: Current Medications Sig/Brigitte Start time Last Medication Dose Route Stop Time Status Admin Aspirin 81 MG DAILY 07/10 1000 DCD 07/12 PO 0743 Atorvastatin Calcium 80 MG 1700 07/10 1700 DCD 07/11 PO 1654 Clopidogrel Bisulfate 75 MG DAILY 07/10 1315 DCD 07/12 PO 0743 Enoxaparin Sodium 40 MG DAILY 07/10 1000 DCD 07/12 SC 0745 Levothyroxine Sodium 0.125 MG DAILY AC 07/12 0700 DCD 07/12 PO 0505 Lisinopril 10 MG DAILY 07/10 1310 DCD 07/12 PO 0539 Metoprolol Succinate 100 MG DAILY 07/11 1000 DCD 07/12 PO 0744 Senna/Docusate Sodium 2 TAB DAILY 07/11 1715 DCD 07/12 PO 0744 Assessment/Plan Assessment: 82-year-old female with past medical history of hypertension, hyperlipidemia, hypothyroidism, presented to the emergency department with complaints of right- sided weakness since past 3 days, but did not come to the hospital considering the cost of ambulance and thinking this could be a TIA. She went to urgent care clinic, where she was referred to the emergency department given her symptom and severity. In the ED, she was noted to have right-sided weakness, and a CAT scan of the head did show 1.5 cm focus of hypodensity within the right thalamus and posterior limb of the right internal capsule and interval development of lacunar infarcts of indeterminate age within the left bobbi and the left coronoid radiata. She is being managed in the telemetry floor for the following issues: Acute ischemic infarct Her clinical features, radiological findings all correlate to acute ischemic CVA. She has already crossed the window for thrombolysis with TPA thus will be managed conservatively. Neurology consultation was requested. Recommendation appreciated. Patient is now on high intensity statin, aspirin and Plavix for the time being, with a plan to change her to aspirin only in the long run. FELICITA inhibitor has been started, given her hypertension which might also prevent further lacunar infarcts which commonly is attributed to uncontrolled/long- standing hypertension. Patient's MRI of the brain showed left-sided acute ischemic infarct, and extensive chronic microvascular changes throughout the brain. Physical therapist assessed her to be discharged to a short-term rehabilitation facility for further physical therapy. She is being discharged to [facility] today accordingly. Hypertension She is now on 10 mg of lisinopril daily and metoprolol succinate, which is her home medication. She has to follow-up with a label stamper after her discharge. Her blood pressure this morning went up to 190/110 without any other symptoms except nausea which she attributed to her hunger, and after getting her medications slightly earlier, normalized to 132/76. Hypothyroidism TSH appears to be 13 high, but free T4 is within normal limits 1.18 currently. This can be monitored as an outpatient. We changed her home dose of levothyroxine 100 mcg to 125 mcg daily. Will continue rest of her home medications. She needs to follow-up with the neurologist and label stamper besides her primary care provider after discharge as well. # Diet: regular diet # DVT prophylaxis: subcutaneous Lovenox # Code status: DNR/DNI Problem List: 1. Acute CVA (cerebrovascular accident) 2. Hypertension 3. Hyperlipemia Pain Ratin Pain Location: - Pain Goal: Pain 4 or less Pain Plan: prn Tomorrow's Labs & Rationales: - Michelle Ulloa MD 07/12/17 1207: Attending MD Review Statement Attending Statement Attending MD Statement: examined this patient, discuss w/resident/PA/FORM [employer], agreed w/resident/PA/[employer], reviewed EMR data (avail), discussed with nursing, discussed with case mgmt, amended to note Attending Assessment/Plan: Patient seen and examined. Resting comfortably not in any acute distress. No issues overnight. No new complaints this morning. No change in her neurologic deficits on examination. MRI done yesterday confirms the presence of a lacunar infarct involving the left ponce radiata. In addition she has extensive chronic small vessel ischemic changes. Symptoms are likely related to atherosclerotic disease and hypertension. She has no evidence of atrial fibrillation on telemetry monitoring. Blood pressure has been controlled with lisinopril and metoprolol. Blood pressure is elevated in the morning but improves with administration of medication. She is medically stable to be discharged once a bed is available at a group home facility for short-term rehabilitation. Recommend outpatient cardiology follow-up for prolonged cardiac monitoring to rule out underlying paroxysmal atrial fibrillation. Synthroid dose has been increased with recommendations for repeat TSH as an outpatient.
--- NOTE | 2017-07-12 07:40 | Patient Discharge Instructions ---
Discharge Instructions General Discharge Information You were seen/treated for: Acute ischemic stroke Special Instructions: Please follow-up with your neurologist, supervisor typesetting, and PCP after discharge. Please return to emergency if symptoms worsen. Diet Continue normal diet: Yes Recommended Diet: Heart Healthy Activity Full Activity/No Limits: No Activity Self Limited: Yes Acute Coronary Syndrome Inclusion Criteria At DC or during hospital stay patient has or had the following: ACS DIAGNOSIS No Discharge Core Measures Meds if any: Prescribed or Continued at Discharge Meds if any: NOT Prescribed or Continued at Discharge Congestive Heart Failure Inclusion Criteria At DC or during hospital stay patient has or had the following: CHF DIAGNOSIS No Discharge Core Measures Meds if any: Prescribed or Continued at Discharge Meds if any: NOT Prescribed or Continued at Discharge Cerebrovascular accident Inclusion Criteria At DC or during hospital stay patient has or had the following: CVA/TIA Diagnosis Yes Discharge Core Measures Meds if any: Prescribed or Continued at Discharge Antithrombotic No Statin (required if LDL =>70) Yes Anticoagulant Yes (aspirin, plavix.) Meds if any: NOT Prescribed or Continued at Discharge No Antithrombotic d/t Medical Contraindication (outside tpa window) Comment no other anticoagulant indicat Venous thromboembolism Inclusion Criteria VTE Diagnosis No VTE Type NONE VTE Confirmed by (Test) NONE Discharge Core Measures - Per Current guidelines, there needs to be overlap - treatment for the first 5 days of Warfarin therapy. - If discharged on Warfarin prior to 5 days of - overlap therapy, the patient will need to be - assessed for post discharge needs including - *Post discharge parental anticoagulation - *Warfarin and/or parental anticoagulation education - *Follow up date to check INR post discharge At least 5 days overlap therapy as Inpatient No Meds if any: Prescribed or Continued at Discharge Note: Overlap Therapy is Warfarin and Anticoagulant Meds if any: NOT Prescribed or Continued at Discharge
[2017-07-12] MEDS ORDERED: SYNTHROID125 MCG PO (07:51)
[2017-07-12 13:57] VITALS: BP 132/76
== END 2017-07-12 15:00 | DRG 65 ==
LOC: ERH 19:06 → ERHI 21:24 → 1NO 21:24 → ERHI 07-10 08:22 → ENRESERV 07-10 14:42 → CANRESERV 07-10 14:42 → ENRESERV 07-10 14:43 → ENTRNSPT 07-10 16:30 → EDTRNSPT 07-10 16:48 → EDTRNSPTSTS 07-10 16:48 → 1NO 07-10 16:55 → CMPTRNSPT 07-10 17:04 → 1NO 07-11 09:51 → ENPENDDIS 07-12 12:10 → 1NO 07-12 15:00
PROVIDERS: Physician Assistant Medical
DX: I63.40 Cerebral infarction due to embolism of unspecified cerebral artery (principal); G81.91 Hemiplegia, unspecified affecting right dominant side; Z68.41 Body mass index [BMI] 40.0-44.9, adult; E66.9 Obesity, unspecified; E03.9 Hypothyroidism, unspecified; I10 Essential (primary) hypertension; E78.5 Hyperlipidemia, unspecified; Z87.891 Personal history of nicotine dependence; Z66 Do not resuscitate
CPT/HCPCS: 1NSP; 70551; 70555; 70557; ERO; 36415; 82436; 93005; 93010; 93306; 97110-GO; 97112-GO; 97116-GO; 97161-GP; 97165-GO; 97530-GO; J0360; J1650; J3490; J7508

== ENCOUNTER 2017-08-10 10:02 | Inpatient (IN) | payer OTHER, MEDICARE ==
[~2017-08-10] VITALS: Ht 142.2 cm; Wt 82.7 kg
[~2017-08-10 10:02] MED LIST changes: +LISINOPRIL10 M1 PO; +PLAVIX75 M1 PO; +SYNTHROID125 MCG PO
[2017-08-10] MEDS ORDERED: PRINIVIL20 M1 PO (10:15)
[2017-08-10] MEDS ORDERED: ZANTAC150 M1 PO (10:16)
[2017-08-10] MEDS ORDERED: VITAMIN D350000 UNIT PO (10:17)
[2017-08-10 11:07] LABS: ABSOLUTE BASOPHIL COUNT 0 /CUMM (0.0-0.2); ABSOLUTE EOSINOPHIL COUNT 0.1 /CUMM (0.0-0.7); ABSOLUTE GRANULOCYTE CT 2.1 /CUMM (1.4-6.5); ABSOLUTE LYMPH COUNT 1.3 /CUMM (1.2-3.4); ABSOLUTE MONOCYTE COUNT 0.4 /CUMM (0.10-0.60); BASOPHIL % 0.6 % (0.0-2.0); EOSINOPHIL % 3.5 % (0-5); GRANULOCYTE % 53.3 % (42.2-75.2); HEMATOCRIT 40.8 % (37-47); MEAN CORPUSCULAR HGB 29.3 PG (27.0-31.0); MEAN CORPUSCULAR HGB CONC 33.1 G/DL (33.0-37.0); MEAN CORPUSCULAR VOLUME 88.5 FL (81.0-99.0); MEAN PLATELET VOLUME 10.5 FL (7.4-10.4); PLATELET COUNT 164 /CUMM (130-400); RBC DISTRIBUTION WIDTH 14.6 % (11.5-14.5); RED BLOOD CELL CT 4.61 /CUMM (4.20-5.40); WHITE BLOOD CELL COUNT 3.9 /CUMM (4.8-10.8)
--- NOTE | 2017-08-10 11:10 | ED CARDIAC/CP/PALPITATIONS ---
History of Present Illness General Chief Complaint: Chest Pain Stated Complaint: BIBA CHEST TIGHTNESS Source: patient, old records, EMS Exam Limitations: no limitations Vital Signs & Intake/Output Vital Signs & Intake/Output Vital Signs Date Time Temp Pulse Resp B/P B/P Pulse O2 O2 Flow FiO2 Mean Ox Delivery Rate 08/10 1411 97.5 59 20 180/90 96 08/10 1136 97.1 56 18 152/70 96 Nasal 2.0L Cannula 08/10 1042 98 Nasal 2.0L Cannula 08/10 1007 97.9 69 18 186/94 96 Room Air Allergies Coded Allergies: shellfish derived (Severe, ANAPHYLAXIS 07/10/17) morphine (UNKNOWN 07/09/17) atropine (Intermediate, HALLUCINATIONS 07/09/17) codeine (Mild, NAUSEA 07/09/17) meperidine (Mild, VOMITING 07/09/17) Reconcile Medications Aspirin (Ecotrin*) 81 MG TABLET.DR 1 TAB PO DAILY HEART HEALTH (Reported) Atorvastatin Calcium (Lipitor) 40 MG TABLET 2 TAB PO DAILY HIGH CHOLESTROL Cholecalciferol (Vitamin D3) (Vitamin D3) 50,000 UNIT CAPSULE 1 TAB PO ONCE A WEEK SUPPPLEMENT (Reported) TAKE ON Clopidogrel Bisulfate (Plavix) 75 MG TABLET 75 MG PO DAILY ANTIPLATELET, FOR PREVENTION Levothyroxine Sodium (Synthroid) 125 MCG TABLET 1 TAB PO DAILY AC HYPOTHYROIDISM Lisinopril (Prinivil) 20 MG TABLET 1 TAB PO DAILY HTN (Reported) Metoprolol Succinate 100 MG TAB.ER.24H 1 TAB PO DAILY HTN (Reported) Ranitidine HCl (Zantac) 150 MG TABLET 1 TAB PO DAILY HEARTBURN (Reported) Triage Note: PT BIBA FROM [facility]. STATES AT AROUND 2AM SHE STARTED TO FEEL PALPITATIONS AND SOME SHORTNESS OF BREATH. REPORTS THAT SHE WAS HERE X3 WEEKS AGO AND DX WITH A STROKE AND STILL HAS SOME RESIDUAL RIGHT SIDED WEAKNESS FROM THAT. PT HAS A HX OF AFIB. STATES IT FEELS LIKE HER HEART IS "FLUTTERING" NOW. PT WAS C/O 9/10 CHEST TIGHTNESS, EMS ADMINISTERED 2 NITRO SL AND PAIN WENT TO A 0. PT ARRIVED TO ED AND PAIN IS BACK TO A 3/10 CURRENTLY. Onset: Abrupt Duration: hour(s): (9) Timing: multiple episodes today Location: central HPI: 82 year old female with history of Afib, CVA last month, residual right sided weakness who presents to the ER for chief complint of shortness of breath for the past one week. She is recently discharged from [facility] one week ago. This morning she awoke with sob, chest tightness and pressure at 2 am from sleep. Pain was 6/10. Patient reports incontinence. She reports diminished appetite, headache. When the sob and chest pain persisted she decided to call EMS. Patient states that the pain is now mild. She was given 2 SL nitroglycerin and now reports pain is better but states that she feels escalating again. No history of similar symptoms in the past. No history of previous NE or stent. She just saw Dr. Brennan on Sunday and was told to come back to his office next week after taking medications from [facility].No fever, chills, nausea, vomiting diarrhea. Past History Travel History Traveled to [facility] past 21 day No Medical History Any Pertinent Medical History? see below for history Neurological: migraine EENT: cataracts Cardiovascular: hypertension, hyperlipidemia, pleurisy Respiratory: NONE Gastrointestinal: NONE Hepatic: NONE Renal: nephrolithiasis Musculoskeletal: NONE Psychiatric: NONE Endocrine: hypothyroidism, obesity Blood Disorders: NONE Cancer(s): NONE SUPERVISOR TUBING/Reproductive: HYSTERECTOMY History of MRSA: No History of VRE: No History of CDIFF: No Surgical History Surgical History: appendectomy, hysterectomy, tubal ligation, 13 EYE OPERATIONS Psychosocial History Who do you live with Patient/Self Services at Home None What is your primary language [place] Tobacco Use: Never used Family History Family History, If Any: Relation not specified for: Unobtainable family history due to adoption Review of Systems Review of Systems Constitutional: Denies: chills, fever. EENTM: Reports: no symptoms. Respiratory: Reports: short of breath. Cardiovascular: Reports: chest pain. GI: Reports: see HPI (poor appetite). Genitourinary: Denies: discharge. Musculoskeletal: Denies: back pain. Skin: Reports: no symptoms. Neurological/Psychological: Reports: anxiety. Hematologic/Endocrine: Denies: bruising, bleeding, polyuria, polydipsia. Immunologic/Allergic: Reports: no symptoms. All Other Systems: Reviewed and Negative Progress Differential Diagnosis: AMI, pulmonary embolism Plan of Care: Orders Procedure Date/time Status Pathway - chart 08/10 1456 Active House Staff 03/09 1457 Active Patient Data 03/09 1457 Active Code Status 08/10 1457 Active Patient Data 08/[address] in observation 08/10 1251 Active ED Holding Orders 08/10 1244 Active Code Status 08/10 1244 Complete Add-on Test (ER Only) 08/10 1115 Active Telemetry/Homicide Squad Lieutenant 08/10 1115 Active PARTIAL THROMBOPLASTIN TIME 08/10 1039 Complete PROTHROMBIN TIME 08/10 1039 Complete TROPONIN LEVEL 08/10 1038 Complete COMPREHENSIVE METABOLIC PANEL 08/10 1038 Complete CBC WITHOUT DIFFERENTIAL 08/10 1038 Complete Intake & Output 08/10 1037 Active EKG 08/10 1003 Active VTE Mechanical Prophylaxis 08/10 UNK Active Telemetry/Homicide Squad Lieutenant 08/10 UNK Active Current Medications Sig/Brigitte Start time Last Medication Dose Stop Time Status Admin Levothyroxine Sodium 0.125 MG DAILY AC 08/11 0700 UNVr (Synthroid) Lisinopril 20 MG DAILY 08/10 145 UNVr (Prinivil) Metoprolol Succinate 100 MG DAILY 08/10 1459 UNVr (Toprol Xl) Aspirin Buffered 81 MG DAILY 08/10 1458 UNVr (Ecotrin) Atorvastatin Calcium 80 MG DAILY 08/10 1458 UNVr (Lipitor) Clopidogrel Bisulfate 75 MG DAILY 08/10 1458 UNVr (Plavix) Nitroglycerin 0.4 MG ONCE ONE 08/10 1130 CAN (Nitrostat) 08/10 1131 Laboratory Tests 08/10/17 1130: Anion Gap 10, Estimated GFR > 60, BUN/Creatinine Ratio 22.9, Glucose 121 H, Calcium 8.8, Total Bilirubin 0.6, AST 32, ALT 35, Alkaline Phosphatase 88, Troponin I < 0.01, Total Protein 6.2 L, Albumin 3.0 L, Globulin 3.3, Albumin/ Globulin Ratio 0.9 L 08/10/17 1039: PT 13.3 H, INR 1.22 H, APTT 27, CBC w Diff NO MAN DIFF REQ, RBC 4.61, MCV 88.5 , MCH 29.3, MCHC 33.1, RDW 14.6 H, MPV 10.5 H, Gran % 53.3, Lymphocytes % 33.0 , Monocytes % 9.6 H, Eosinophils % 3.5, Basophils % 0.6, Absolute Granulocytes 2.1, Absolute Lymphocytes 1.3, Absolute Monocytes 0.4, Absolute Eosinophils 0.1, Absolute Basophils 0 Diagnostic Imaging: Viewed by Me: Radiology Read, CT Scan. Discussed w/RAD: Radiology Read, CT Scan. Radiology Impression: PATIENT: AUTUMN CRUZ PRESENT AGE: 82 PATIENT ACCOUNT NO: [id number] : 37 LOCATION: [facility] ORDERING PHYSICIAN : Camilla Pennington MD SERVICE DATE: 08/10/17124 EXAM TYPE: CAT - CTA CHEST- AORTIC DISSECTION EXAMINATION: CTA CHEST CLINICAL INFORMATION: Chest pain, shortness of breath radiating to back, evaluate for dissection. COMPARISON: Chest x-ray 08/10/2017. CTA chest April 2017. TECHNIQUE: Contiguous helical images of the chest were obtained following the administration of IV contrast. Multiplanar reconstructions were performed. MIPs were obtained and reviewed.. Contrast dose 95 mL of Optiray 320. CONTRAST: FINDINGS: CARDIOVASCULAR: Aorta: No dissection or aneurysm. Moderate arterial calcification noted throughout including the aorta and coronary vessels. No pericardial effusion. Heart size appears within normal limits. Pulmonary arteries and branches: Normal. No embolus. LUNGS AND PLEURAL SPACES: Minimal subsegmental atelectasis, bibasilar, and in the lingula, unchanged. No infiltrates or nodules. AIRWAYS: Clear. LYMPH NODES: Normal. ESOPHAGUS: Small hiatal hernia, unchanged. CHEST WALL AND SOFT TISSUES: Normal. OSSEOUS STRUCTURES: Multilevel spondylosis of the dorsal spine, unchanged. UPPER ABDOMEN: Unremarkable. IMPRESSION: No evidence for aortic dissection. Moderate calcific atherosclerotic disease unchanged. Small hiatal hernia unchanged. DICTATED BY: Blaine Tena MD DATE/TIME DICTATED:08/10/171408 AIRCRAFT CHARTER DISPATCHER:ANDRÉS DATE/TIME TRANSCRIBED:08/10/171408 CONFIDENTIAL, DO NOT COPY WITHOUT APPROPRIATE AUTHORIZATION. <Electronically signed in Other Vendor System> SIGNED BY: Blaine Tena MD 08/10/17 1435 CXR Impression: PATIENT: AUTUMN CRUZ PRESENT AGE: 82 PATIENT ACCOUNT NO: [id number] : 37 LOCATION: [facility] ORDERING PHYSICIAN: Camilla Pennington MD SERVICE DATE: 08/10/17-1115 EXAM TYPE: RAD - XRY-PORTABLE CHEST XRAY EXAMINATION: XR PORTABLE CHEST CLINICAL INFORMATION: Chest pain COMPARISON: Chest CT from 04/17/2017 TECHNIQUE: Portable frontal view of the chest was obtained. FINDINGS: Lungs are well expanded and clear with exception of focal linear opacity of discoid atelectasis or scar in the lingula. No pulmonary edema, consolidation, pleural effusion or pneumothorax. Cardiomegaly. Atherosclerotic calcification of the aorta tortuous thoracic aorta. The visualized bones are intact. IMPRESSION: 1. Cardiomegaly. 2. No acute cardiopulmonary findings compared to the chest CT from 04/17/2017. DICTATED BY: Ab Ellison MD DATE/TIME DICTATED:08/10/171231 AIRCRAFT CHARTER DISPATCHER:ANDRÉS DATE/TIME TRANSCRIBED:08/10/171231 CONFIDENTIAL, DO NOT COPY WITHOUT APPROPRIATE AUTHORIZATION. <Electronically signed in Other Vendor System> SIGNED BY: Ab Ellison MD 08/10/17 1237 Initial ED EKG: NSR, LVH, PVC'S, LAD Departure Departure Time of Disposition: 1251 Disposition: STILL A PATIENT Condition: Stable Clinical Impression Primary Impression: Chest pain Referrals: Anselmo MAKI,Tanvir Varela (PCP/Family) Departure Forms: Customer Survey General Discharge Information Observation Note Spoke With: Chaz Sanders MD Physician Advisor Notified: MARTY MAKI,OLVIN Daniels (CASE MANAGEMENT) Place Patient In: Non-ED OBS Care Area Rationale for Observation: My rational for observation is as follows [TELE MONITOR, SERIAL EKG/TROPONIN, ASPIRIN, NITRATES, ].
[2017-08-10 11:41] LABS: PT 13.3 SEC (9.4-12.5); PTT 27 SEC (25-37)
--- NOTE | 2017-08-10 12:37 | RADIOLOGY REPORT ---
EXAMINATION: XR PORTABLE CHEST CLINICAL INFORMATION: Chest pain COMPARISON: Chest CT from 04/17/2017 TECHNIQUE: Portable frontal view of the chest was obtained. FINDINGS: Lungs are well expanded and clear with exception of focal linear opacity of discoid atelectasis or scar in the lingula. No pulmonary edema, consolidation, pleural effusion or pneumothorax. Cardiomegaly. Atherosclerotic calcification of the aorta tortuous thoracic aorta. The visualized bones are intact. IMPRESSION: 1. Cardiomegaly. 2. No acute cardiopulmonary findings compared to the chest CT from 04/17/2017.
--- NOTE | 2017-08-10 14:04 | History & Physical ---
Pierce MAKIVandana 08/10/17 1403: General Information and HPI MD Statement: I have seen and personally examined AUTUMN CRUZ and documented this H&P. The patient is a 82 year old F who presented with a patient stated chief complaint of [chest pain]. Source of Information: patient, family, old records Exam Limitations: no limitations History of Present Illness: 82 years old female with past medical history of A. 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 Patient reports that the symptoms awoke her from sleep. She describes the chest tightness as pressure on the left side of her chest which was 10/10 in severity, not related to breathing or lying down on her back. Which was associated with exertional progressively worsening shortness of breath (as per the patient experienced SOB after walking 20 steps). The patient waited till 8 AM when her visiting nurse aide came, the nurse found out that her blood pressure was high in the 200, she called Dr. Brennan and he recommended that she come to the ED for further evaluation. On her way to the hospital she received sublingual nitroglycerin which caused her pain to decrease to 4/10, in the ED her pain started escalating again and she was given nitroglycerin patch which caused her pain to decrease. At the time of the encounter the patient reports that her pain is 4/10. Patient also reports dry cough for a few days which she was told by her doctor that it is due to the lisinopril. Patient also reports orthopnea which was getting worse over the past 1 months however she still uses one pillow (no change from her baseline). In addition the patient reports mild mid back pain which started 1 hour before the encounter. The patient complains of urine urgency however she denies any incontinence. The patient was recently discharged from [facility] [place] 1 week ago after she was discharged from [facility] for CVA. She has a visiting PT/OT therapist which she was able to work with without any troubles. Patient denies She was recently seen by her territory sales professional Dr. Brennan 1 week ago and was supposed to see him again in 1 week to adjust her medication. Patient currently is living alone independently and uses a walker to ambulate Allergies/Medications Allergies: Coded Allergies: shellfish derived (Severe, ANAPHYLAXIS 07/10/17) morphine (UNKNOWN 07/09/17) atropine (Intermediate, HALLUCINATIONS 07/09/17) codeine (Mild, NAUSEA 07/09/17) meperidine (Mild, VOMITING 07/09/17) Past History Travel History Traveled to [place] past 21 day No Medical History Neurological: migraine EENT: cataracts Cardiovascular: hypertension, hyperlipidemia, pleurisy Respiratory: NONE Gastrointestinal: NONE Hepatic: NONE Renal: nephrolithiasis Musculoskeletal: NONE Psychiatric: NONE Endocrine: hypothyroidism, obesity Blood Disorders: NONE Cancer(s): NONE 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 yes Functional Ability ADLs Independent: dressing, eating, toileting, bathing. Ambulation: independent IADLs Independent: shopping, housework, finances, food prep, telephone, medication admin. Review of Systems Review of Systems Constitutional: Reports: malaise, weakness. Cardiovascular: Reports: chest pain, edema, orthopena. Denies: palpitations, peripheral edema, syncope. Respiratory: Reports: cough, orthopnea, short of breath. Denies: hemoptysis, sputum production, stridor, wheezing. GI: Denies: bloating, constipation, diarrhea, bowel incontinence, melena, nausea, bloody stool. Genitourinary: Reports: urgency. Denies: dysuria, frequency, hematuria, hesitation, nocturia, pain. Musculoskeletal: Reports: back pain. Denies: joint pain, joint swelling, muscle pain, muscle stiffness. Skin: Denies: no symptoms. Neurological/Psychological: Reports: dementia, weakness. Hematologic/Endocrine: Denies: no symptoms. Immunologic/Allergic: Denies: no symptoms. Exam & Diagnostic Data Last 24 Hrs of Vital Signs/I&O Vital Signs Date Time Temp Pulse Resp B/P B/P Pulse O2 O2 Flow FiO2 Mean Ox Delivery Rate 08/10 1411 97.5 59 20 180/90 96 08/10 1136 97.1 56 18 152/70 96 Nasal 2.0L Cannula 08/10 1042 98 Nasal 2.0L Cannula 08/10 1007 97.9 69 18 186/94 96 Room Air Intake & Output 08/10 1600 08/10 0800 08/10 0000 Intake Total 0 Output Total Balance 0 Intake, Oral 0 Physical Exam General Appearance Alert, Oriented X3, Cooperative, No Acute Distress HEENT Atraumatic, PERRLA, EOMI, Mucous Membr. moist/pink Neck Supple, No JVD Cardiovascular Normal S1, Normal S2, No Murmurs, irregular Lungs Clear to Auscultation Abdomen Normal Bowel Sounds, Soft, No Tenderness Neurological Normal Speech, strenghth is 3/5 in the RUE and RLE Extremities No Clubbing, No Cyanosis, 1+pitting edema Vascular Normal Pulses Last 24 Hrs of Labs/Georges: Laboratory Tests 08/10/17 1130: Anion Gap 10, Estimated GFR > 60, BUN/Creatinine Ratio 22.9, Glucose 121 H, Calcium 8.8, Total Bilirubin 0.6, AST 32, ALT 35, Alkaline Phosphatase 88, Troponin I < 0.01, Total Protein 6.2 L, Albumin 3.0 L, Globulin 3.3, Albumin/ Globulin Ratio 0.9 L 08/10/17 1039: PT 13.3 H, INR 1.22 H, APTT 27, CBC w Diff NO MAN DIFF REQ, RBC 4.61, MCV 88.5 , MCH 29.3, MCHC 33.1, RDW 14.6 H, MPV 10.5 H, Gran % 53.3, Lymphocytes % 33.0 , Monocytes % 9.6 H, Eosinophils % 3.5, Basophils % 0.6, Absolute Granulocytes 2.1, Absolute Lymphocytes 1.3, Absolute Monocytes 0.4, Absolute Eosinophils 0.1, Absolute Basophils 0 Diagnostic Data EKG Results Sinus rhythm, heart rate 67, PVCs, QTC 452, no STT wave change CXR Results 1. Cardiomegaly. 2. No acute cardiopulmonary findings compared to the chest CT from 04/17/2017 Other Results CTA chest: No evidence for aortic dissection. Moderate calcific atherosclerotic disease unchanged. Small hiatal hernia unchanged. Assessment/Plan Assessment: 82 years old female with past medical history of A. 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 It was not related to breathing or posture. The chest pain was relieved by sublingual and topical nitroglycerin. Patient also reported back pain which was concerning because she has history of hypertension, her blood pressure on admission was 186/94, aortic dissection was ruled out with CTA chest. Given her history of A. fib and hypertension, and the character of her chest pain, ACS has to be ruled out ED course: Vital signs: Blood pressure 186/94, pulse 69, temp 97.9, respiratory rate 18, pulse ox 96 on room air Labs on admission: CBC was normal with WBC 3.9, hemoglobin 13.5, platelet 164, INR 1.22, troponin less than 0.01, BEP was normal with sodium 144, potassium 4, BUN 16, creatinine 0.7 Chest x-ray: Cardiomegaly, no acute cardiopulmonary finding compared to the previous CT on April 2017 CTA chest: No evidence for aortic dissection. Moderate calcific atherosclerotic disease unchanged. Small hiatal hernia unchanged. Problem list: Unstable angina History of A. fib Hypertension Hyperlipidemia History of CVA with residual right sided weakness History of hypothyroidism Plan: Observe on telemetry floor Continue aspirin 81 mg p.o. Continue Plavix 75 mg p.o.daily Serial troponin and EKG to rule out ACS Continue home dose of lisinopril 20 mg p.o. daily and metoprolol Atorvastatin 80 mg daily Continue levothyroxine 125 mcg p.o. daily Cardiology consult appreciated DNR/DNI DVT prophylaxis Alps and subcutaneous heparin Heart healthy diet As Ranked By This Provider Problem List: 1. Chest pain 2. Hypertension 3. Hyperlipemia Core Measures/Misc (02/18) Acute Coronary Syndrome ACS Diagnosis: Yes Last Known EF % 60 Congestive Heart Failure Congestive Heart Failure Diagnosis No Cerebrovascular Accident CVA/TIA Diagnosis: No VTE (View Protocol) VTE Risk Factors Age>40 No Mechanical VTE Prophylaxis d/t N/A MechProphylax Ordered No VTE Pharm Prophylaxis d/t NA PharmProphylax ordered Sepsis (View protocol) Sepsis Present: No Celestino Perdomo MD 08/10/17 1529: General Information and HPI Statement: I have seen and personally examined AUTUMN CRUZ and documented this H&P. The patient is a 82 year old F who presented with a patient stated chief complaint of []. Resident Review Statement Resident Statement: examined this patient, discussed with finance intern, agreed with finance intern, discussed with family Other Findings: Patient is an 82-year-old female presented with chief complaints of chest pain since one day. Patient is an 82-year-old female presented with chief complaints of chest pain. She was recently discharged to [facility] [place] for stroke rehabilitation in July 2017. She come back to home around 1 week ago. according to her she she woke up with chest pain 2AM in morning. She described it as a pressure in the center of the chest, 10/10, nonradiating, not associated with nausea vomiting or diaphoresis. She went to the bathroom multiple times and later she sat down on the bed. She did not call anybody or took any medication.Pain stayed there till 8Am in morning. Her visiting nurse came in the morning and she took a blood pressure which has more than 200 so she called the EMS and sent her to the hospital. During the EMS transport she was given 1 tablet of nitroglycerin which relieved her chest pain from 10/10, to 0. When she reached to the hospital she again started having mild grade of chest pain and she was again given nitroglycerin patch which decrease her pain to 6/10. Of note as a baseline patient walks with a walker, she feels short of breath after walking 20 steps on ground. Recently her shortness of breath has also been increased. She finds difficulty on lying flat. She denies for any swelling in the legs, weight gain, excessive salt use, excessive water use, fever, chills, nausea, vomiting, abdominal pain, diarrhea, constipation, decreased urine output. PCP - Anselmo [facility] Past medical history - Congentinal cataract, nedeed recurrent surgery, and associated with rotatory nystagmus History of stroke with right-sided weakness (Jul 2017) Hypertension Dyslipidemia Hypothyroidism Left-sided hydronephrosis secondary to obstructing ureteral stone needed stent placement and nephrolithiasis -2014 Assessment and plan - Patient is an 82-year-old female with multiple coronary artery disease risk factors including hypertension, hyperlipidemia with history of recent stroke presented with chief complaints of chest pain/pressure which was relieved by nitroglycerin. On examination patient was short of breath even with mild exertion, heart S1-S2, lungs bilateral basilar crackles,and decreased air entry. EKG showed ST depression in lateral leads and right bundle branch block, VPCs. Chest x-ray did not show any acute cardiopulmonary changes except cardiomegaly, CT was negative for PE. First troponins were negative. We will observe the patient to telemetry floor and rule out acute coronary syndrome. ED course - Vital signs -temperature 97.9, pulse 69, respiratory rate 18, blood pressure 186 /94, SPO2 96% on room air. Physical exam -alert oriented to time place and person, lying comfortably on the bed, eyes rolling nystagmus, JVD present, lungs bilateral decreased air entry on the basis, heart S1-S2 normal, abdomen distended soft bowel sounds positive, bilateral lower extremity no edema,deep tenderness on the right calf. Blood workup -WBC 3.9, hemoglobin 13.5, platelet count 164, sodium 144, potassium 4.0, chloride 112, anion gap 10, BUN 16, creatinine 0.7, glucose 121, calcium 8.8, AST 32, ALT 35, troponin I less than 0.01, albumin 3.0, PT/INR 13.3 /1.22, EKG-heart rate 67, borderline QRS widening, right bundle branch block, with PVCs. Chest x-ray -cardiomegaly, no acute cardiopulmonary changes CTA -negative for PE, aortic dissection Unstable angina * Observe in to telemetry floor * Serial troponins and EKG * Follow-up cardiology recommendation * We will discuss with territory sales professional for if patient need heparin or echocardiogram * We will continue aspirin and Plavix. Hypertension -controlled * Low-salt diet * Continue antihypertensive including metoprolol, lisinopril. * patient is having chronic dry cough, will for cardiology if considering stopping FELICITA to ARB Hypothyroidism * Continue tablet levothyroxine 125 mcg daily Diet -heart healthy diet, low-salt DVT prophylaxis -NGHIA/heparin CODE STATUS -DNR/DNI MelinaKennethyifan 08/10/172039: General Information and HPI Allergies/Medications Home Med list Amlodipine Besylate 5 MG TABLET 5 MG PO DAILY high blood pressure Aspirin (Ecotrin*) 81 MG TABLET. 1 TAB PO DAILY HEART HEALTH (Reported) Atorvastatin Calcium (Lipitor) 40 MG TABLET 2 TAB PO DAILY HIGH CHOLESTROL Cholecalciferol (Vitamin D3) (Vitamin D3) 50,000 UNIT CAPSULE 1 TAB PO ONCE A WEEK SUPPPLEMENT (Reported) TAKE ON TU Clopidogrel Bisulfate (Plavix) 75 MG TABLET 75 MG PO DAILY ANTIPLATELET, FOR PREVENTION Levothyroxine Sodium (Synthroid) 125 MCG TABLET 1 TAB PO DAILY AC HYPOTHYROIDISM Losartan Potassium 50 MG TABLET 50 MG PO DAILY high blood pressure Metoprolol Succ XL (Toprol Xl) 50 MG TAB 50 MG PO DAILY high blood pressure Nitroglycerin 0.3 MG TAB.SUBL 1 TAB SL Q6P PRN chest pain Ranitidine HCl (Zantac) 150 MG TABLET 1 TAB PO DAILY HEARTBURN (Reported) Attending MD Review Statement Attending Statement Attending MD Statement: examined this patient, discuss w/resident/PA/PRODUCT SAFETY SPECIALIST, agreed w/resident/PA/PRODUCT SAFETY SPECIALIST, discussed with family, reviewed EMR data (avail), discussed with case mgmt Attending Assessment/Plan: 82 yr old female brought to the Er for chest pain which is pressure like sensation that started this am around 2am. Pain was 8/10 and cont to persist till the morning when her visiting nurse found her to have very high BP and called PCP who asked pt to be brought to ER. Pt received NTG in er which made the chest pain better. Pt recently had a cva and was recently dced to home one week ago from rehab. Pt in Er had negative troponin and was evaluated by cardiology. Pt is being placed in observation status. Will put her on tele monitor, repeat EKG in am and do serial trop and will order an echocardiogram.
--- NOTE | 2017-08-10 14:35 | CT SCAN REPORT ---
EXAMINATION: CTA CHEST CLINICAL INFORMATION: Chest pain, shortness of breath radiating to back, evaluate for dissection. COMPARISON: Chest x-ray 08/10/2017. CTA chest April 2017. TECHNIQUE: Contiguous helical images of the chest were obtained following the administration of IV contrast. Multiplanar reconstructions were performed. MIPs were obtained and reviewed.. Contrast dose 95 mL of Optiray 320. CONTRAST: FINDINGS: CARDIOVASCULAR: Aorta: No dissection or aneurysm. Moderate arterial calcification noted throughout including the aorta and coronary vessels. No pericardial effusion. Heart size appears within normal limits. Pulmonary arteries and branches: Normal. No embolus. LUNGS AND PLEURAL SPACES: Minimal subsegmental atelectasis, bibasilar, and in the lingula, unchanged. No infiltrates or nodules. AIRWAYS: Clear. LYMPH NODES: Normal. ESOPHAGUS: Small hiatal hernia, unchanged. CHEST WALL AND SOFT TISSUES: Normal. OSSEOUS STRUCTURES: Multilevel spondylosis of the dorsal spine, unchanged. UPPER ABDOMEN: Unremarkable. IMPRESSION: No evidence for aortic dissection. Moderate calcific atherosclerotic disease unchanged. Small hiatal hernia unchanged.
[2017-08-10 17:00] VITALS: BP 154/92
--- NOTE | 2017-08-10 19:23 | Cons- Cardiology ---
General Information and HPI Consulting Request Date of Consult: 08/10/17 Requested By: Chaya Summers MD Reason for Consult: Chest discomfort and ventricular ectopy Source of Information: patient, family, old records Exam Limitations: no limitations History of Present Illness: the patient is an 82-year-old female, followed by Dr. Brennan, who was recently discharged from the hospital after a stroke with a history of atrial fibrillation, not on anticoagulant therapy at the moment. The patient is now readmitted to the hospital via the emergency room with symptoms of chest discomfort. She describes the symptoms as a chest tightness or pressure on the left parasternal area which she rates as an 8-10/10 in severity. She denies any positional or pleuritic component. She also noticed increasing sense of shortness of breath. in the emergency room, the patient's symptoms did improve somewhat with nitroglycerin paste. Her initial evaluation included an ECG which showed no ssignificant change. Ventricular ectopy was present.a CTA of the chest show no evidence of pulmonary emboli or dissection. The patient has also noticed some mid back discomfort. She is also extremely anxious. Allergies/Medications Allergies: Coded Allergies: shellfish derived (Severe, ANAPHYLAXIS 07/10/17) morphine (UNKNOWN 07/09/17) atropine (Intermediate, HALLUCINATIONS 07/09/17) codeine (Mild, NAUSEA 07/09/17) meperidine (Mild, VOMITING 07/09/17) Home Med List: Aspirin (Ecotrin*) 81 MG TABLET.DR 1 TAB PO DAILY HEART HEALTH (Reported) Atorvastatin Calcium (Lipitor) 40 MG TABLET 2 TAB PO DAILY HIGH CHOLESTROL Cholecalciferol (Vitamin D3) (Vitamin D3) 50,000 UNIT CAPSULE 1 TAB PO ONCE A WEEK SUPPPLEMENT (Reported) TAKE ON Clopidogrel Bisulfate (Plavix) 75 MG TABLET 75 MG PO DAILY ANTIPLATELET, FOR PREVENTION Levothyroxine Sodium (Synthroid) 125 MCG TABLET 1 TAB PO DAILY AC HYPOTHYROIDISM Lisinopril (Prinivil) 20 MG TABLET 1 TAB PO DAILY HTN (Reported) Metoprolol Succinate 100 MG TAB.ER.24H 1 TAB PO DAILY HTN (Reported) Ranitidine HCl (Zantac) 150 MG TABLET 1 TAB PO DAILY HEARTBURN (Reported) Current Medications: Current Medications Sig/Brigitte Start time Last Medication Dose Route Stop Time Status Admin Aspirin 0 .STK-MED ONE 08/10 1525 DC PO Aspirin Buffered 81 MG DAILY 08/10 1458 AC 08/10 PO 1609 Atorvastatin Calcium 80 MG 1700 08/10 1700 AC 08/10 PO 1609 Clopidogrel Bisulfate 0 .STK-MED ONE 08/10 1525 DC PO Clopidogrel Bisulfate 75 MG DAILY 08/10 1458 AC 08/10 PO 1609 Diphenhydramine HCl 0 .STK-MED ONE 08/10 1258 DC .ROUTE Diphenhydramine HCl 50 MG ONCE ONE 08/10 1245 DC 08/10 IV PUSH 08/10 1246 1258 Levothyroxine Sodium 0.125 MG DAILY AC 08/11 0700 AC PO Lisinopril 0 .STK-MED ONE 08/10 1525 DC PO Lisinopril 20 MG DAILY 08/10 1459 AC 08/10 PO 1609 Methylprednisolone 0 .STK-MED ONE 08/10 1258 DC .ROUTE Methylprednisolone 125 MG ONCE ONE 08/10 1245 DC 08/10 IV 08/10 1246 1258 Metoprolol Succinate 100 MG DAILY 08/10 1459 AC 08/10 PO 1609 Nitroglycerin 0.2 MG DAILY 08/10 1835 AC TOP Nitroglycerin 0 .STK-MED ONE 08/10 1135 DC TOP Nitroglycerin 0.4 MG ONCE ONE 08/10 1130 CAN SL 08/10 1131 Nitroglycerin 1 GM ONCE ONE 08/10 1130 DC 08/10 TOP 08/10 1131 1134 Past History Travel History Traveled to [place] past 21 day No Medical History Blood Transfusion Hx: Yes Neurological: migraine EENT: cataracts Cardiovascular: hypertension, hyperlipidemia, pleurisy Respiratory: NONE Gastrointestinal: NONE Hepatic: NONE Renal: nephrolithiasis Musculoskeletal: NONE Psychiatric: NONE Endocrine: hypothyroidism, obesity Blood Disorders: NONE Cancer(s): NONE CORRECTIONAL SUPERVISING COOK/Reproductive: HYSTERECTOMY Surgical History Surgical History: appendectomy, hysterectomy, tubal ligation, 13 EYE OPERATIONS Family History Relations & Conditions If Any: Relation not specified for: Unobtainable family history due to adoption Psychosocial History Where Do You Live? Home Services at Home: [facility] Primary Language: Maori Smoking Status: Never Smoked Living Will? yes Functional Ability ADLs Independent: dressing, eating, toileting, bathing. Ambulation: independent IADLs Independent: shopping, housework, finances, food prep, telephone, medication admin. Exam & Diagnostic Data Vital Signs and I&O Vital Signs Date Time Temp Pulse Resp B/P B/P Pulse O2 O2 Flow FiO2 Mean Ox Delivery Rate 08/10 1700 97.8 64 22 154/92 08/10 1631 97.6 70 18 180/92 95 Room Air 08/10 1609 71 180/90 08/10 1609 71 180/90 08/10 1411 97.5 59 20 180/90 96 08/10 1136 97.1 56 18 152/70 96 Nasal 2.0L Cannula 08/10 1042 98 Nasal 2.0L Cannula 08/10 1007 97.9 69 18 186/94 96 Room Air Intake & Output 08/10 1600 08/10 0808/10 0000 08/09 1600 08/09 0808/09 0000 Intake Total 0 Output Total Balance 0 Intake, Oral 0 Physical Exam: General Appearance Alert, Oriented X3, Cooperative, No Acute Distress, anxious HEENT Atraumatic, PERRLA, EOMI, Mucous Membr. moist/pink Neck Supple, No JVD, carotids normal bilaterally Cardiovascular Normal S1, Normal S2, 1/6 systolic murmur, ventricular ectopy Lungs Clear to Auscultationand percussion bilaterally Abdomen Normal Bowel Sounds, Soft, No Tenderness Neurological Normal /nonfocal Extremities No Clubbing, No Cyanosis, 1+pitting edema Vascular Normal Pulses Labs/Georges Results: Laboratory Tests 08/10 08/10 08/10 1904 1604 1130 Chemistry Sodium (137 - 145 mmol/L) 144 Potassium (3.5 - 5.1 mmol/L) 4.0 Chloride (98 - 107 mmol/L) 112 H Carbon Dioxide (22 - 30 mmol/L) 22 Anion Gap (5 - 16) 10 BUN (7 - 17 mg/dL) 16 Creatinine (0.5 - 1.0 mg/dL) 0.7 Estimated GFR (>60 ml/min) > 60 BUN/Creatinine Ratio (7 - 25 %) 22.9 Glucose (65 - 99 mg/dL) 121 H Calcium (8.4 - 10.2 mg/dL) 8.8 Total Bilirubin (0.2 - 1.3 mg/dL) 0.6 AST (14 - 36 U/L) 32 ALT (9 - 52 U/L) 35 Alkaline Phosphatase (<127 U/L) 88 Troponin I (< 0.11 ng/ml) Pending < 0.01 < 0.01 Total Protein (6.3 - 8.2 g/dL) 6.2 L Albumin (3.5 - 5.0 g/dL) 3.0 L Globulin (1.9 - 4.2 gm/dL) 3.3 Albumin/Globulin Ratio (1.1 - 2.2 %) 0.9 L TSH (0.270 - 4.200 uIU/mL) 1.040 Free T4 (0.85 - 1.93 ng/dL) 2.10 H Free T3 (2.34 - 5.61 pg/mL) 4.2 / 1039 Coagulation PT (9.4 - 12.5 SEC) 13.3 H INR (0.90 - 1.19) 1.22 H APTT (25 - 37 SEC) 27 Hematology CBC w Diff NO MAN DIFF REQ WBC (4.8 - 10.8 /CUMM) 3.9 L RBC (4.20 - 5.40 /CUMM) 4.61 Hgb (12.0 - 16.0 G/DL) 13.5 Hct (37 - 47 %) 40.8 MCV (81.0 - 99.0 FL) 88.5 MCH (27.0 - 31.0 PG) 29.3 MCHC (33.0 - 37.0 G/DL) 33.1 RDW (11.5 - 14.5 %) 14.6 H Plt Count (130 - 400 /CUMM) 164 MPV (7.4 - 10.4 FL) 10.5 H Gran % (42.2 - 75.2 %) 53.3 Lymphocytes % (20.5 - 51.1 %) 33.0 Monocytes % (1.7 - 9.3 %) 9.6 H Eosinophils % (0 - 5 %) 3.5 Basophils % (0.0 - 2.0 %) 0.6 Absolute Granulocytes (1.4 - 6.5 /CUMM) 2.1 Absolute Lymphocytes (1.2 - 3.4 /CUMM) 1.3 Absolute Monocytes (0.10 - 0.60 /CUMM) 0.4 Absolute Eosinophils (0.0 - 0.7 /CUMM) 0.1 Absolute Basophils (0.0 - 0.2 /CUMM) 0 Diagnostic Data EKG Results sinus rhythm with ventricular ectopy and nonspecific ST-T changes CXR Results IMPRESSION: 1. Cardiomegaly. 2. No acute cardiopulmonary findings compared to the chest CT from 04/17/2017. Other Results CTA chest: FINDINGS: CARDIOVASCULAR: Aorta: No dissection or aneurysm. Moderate arterial calcification noted throughout including the aorta and coronary vessels. No pericardial effusion. Heart size appears within normal limits. Pulmonary arteries and branches: Normal. No embolus. LUNGS AND PLEURAL SPACES: Minimal subsegmental atelectasis, bibasilar, and in the lingula, unchanged. No infiltrates or nodules. AIRWAYS: Clear. LYMPH NODES: Normal. ESOPHAGUS: Small hiatal hernia, unchanged. CHEST WALL AND SOFT TISSUES: Normal. OSSEOUS STRUCTURES: Multilevel spondylosis of the dorsal spine, unchanged. UPPER ABDOMEN: Unremarkable. IMPRESSION: No evidence for aortic dissection. Moderate calcific atherosclerotic disease unchanged. Small hiatal hernia unchanged. Assessment/Plan Assessment/Plan Assessment: 1. Chest pain syndrome-by history, the symptoms seem to be likely noncardiac. The possibility of unstable angina Excluded. The possibility of symptoms related to ventricular ectopy also need to be considered. Initial ECG without significant changes. 2. Hypertension 3. History of atrial fibrillation 4. Recent stroke 5. hypothyroidism Recommendations: -Admit the patient to under telemetry -Serial troponins -Serial ECGs -Follow-up echocardiogram to rule out interval changes -Continue current medications for now -For the moment, I do not see any indication for anticoagulation. -Ultimately, the question of long-term anticoagulation for atrial fibrillation/ stroke will need to be addressed Consult Acknowledgment - Thank you for your consult request.
[2017-08-10 22:29] VITALS: BP 130/84
[2017-08-11 07:23] VITALS: BP 124/88
[2017-08-11 08:27] LABS: ABSOLUTE BASOPHIL COUNT 0 /CUMM (0.0-0.2); ABSOLUTE EOSINOPHIL COUNT 0 /CUMM (0.0-0.7); ABSOLUTE GRANULOCYTE CT 6.1 /CUMM (1.4-6.5); ABSOLUTE LYMPH COUNT 1.1 /CUMM (1.2-3.4); ABSOLUTE MONOCYTE COUNT 0.3 /CUMM (0.10-0.60); BASOPHIL % 0.2 % (0.0-2.0); EOSINOPHIL % 0 % (0-5); HEMATOCRIT 42.5 % (37-47); MEAN CORPUSCULAR HGB CONC 32.8 G/DL (33.0-37.0); MEAN CORPUSCULAR VOLUME 88.2 FL (81.0-99.0); MEAN PLATELET VOLUME 10.1 FL (7.4-10.4); PLATELET COUNT 158 /CUMM (130-400); RBC DISTRIBUTION WIDTH 14.6 % (11.5-14.5); RED BLOOD CELL CT 4.82 /CUMM (4.20-5.40)
--- NOTE | 2017-08-11 08:34 | PN- Housestaff ---
Imani Galeana 08/11/17 0833: Subjective Follow-up For: Unstable angina Subjective: Patient reports persistent chest pressure. No acute events overnight Review of Systems Constitutional: Reports: see HPI. Objective Last 24 Hrs of Vital Signs/I&O Vital Signs Date Time Temp Pulse Resp B/P B/P Pulse O2 O2 Flow FiO2 Mean Ox Delivery Rate 08/11 1451 97.6 46 20 130/72 97 Room Air 08/11 1043 64 120/70 08/11 1042 64 120/70 08/11 0723 98.3 56 18 124/88 91 Room Air 08/10 2229 98.6 71 22 130/84 91 Intake & Output 08/11 1600 08/11 0800 08/11 0000 Intake Total 480 110 250 Output Total 500 Balance -20 110 250 Intake, IV 10 Intake, Oral 480 100 250 Output, Urine 500 Patient 186 lb Weight Weight Reported by Patient Measurement Method Physical Exam General Appearance: Alert, Oriented X3, Cooperative, No Acute Distress Cardiovascular: irregular rate Lungs: Clear to Auscultation, Normal Air Movement Abdomen: Normal Bowel Sounds, Soft, No Tenderness, No Hepatospenomegaly, No Masses Extremities: No Edema Current Medications: Current Medications Sig/Brigitte Start time Last Medication Dose Route Stop Time Status Admin Aspirin Buffered 81 MG DAILY 08/10 1458 AC 08/11 PO 1042 Atorvastatin Calcium 80 MG 1700 08/10 1700 AC 08/11 PO 1754 Calcium Carbonate 500 MG ONCE ONE 08/11 1745 DC 08/11 PO 08/11 1746 1754 Clopidogrel Bisulfate 75 MG DAILY 08/10 1458 AC 08/11 PO 1042 Levothyroxine Sodium 0.125 MG DAILY AC 08/11 0700 AC 08/11 PO 0623 Lisinopril 20 MG DAILY 08/10 1459 AC 08/11 PO 1042 Metoprolol Succinate 100 MG DAILY 08/10 1459 AC 08/11 PO 1043 Nitroglycerin 0.2 MG DAILY 08/10 1835 AC 08/11 TOP 1043 Last 24 Hrs of Lab/Georges Results Last 24 Hrs of Labs/Mics: Laboratory Tests 08/11/17 0705: Anion Gap 11, Estimated GFR > 60, BUN/Creatinine Ratio 28.8 H, Thyroxine (T4) 11.6 H, CBC w Diff NO MAN DIFF REQ, RBC 4.82, MCV 88.2, MCH 29.0, MCHC 32.8 L, RDW 14.6 H, MPV 10.1, Gran % 81.1 H, Lymphocytes % 15.1 L, Monocytes % 3.6, Eosinophils % 0, Basophils % 0.2, Absolute Granulocytes 6.1, Absolute Lymphocytes 1.1 L, Absolute Monocytes 0.3, Absolute Eosinophils 0, Absolute Basophils 0 08/10/17 1904: Troponin I < 0.01 Assessment/Plan Assessment: 82 years old female with past medical history of A. fib not on Coumadin, HTN, HLD, hypothyroidism, CVA last months with right residual weakness who presents to the ED complaining of chest pressure and shortness of breath Problem list: Unstable angina History of A. fib Hypertension Hyperlipidemia History of CVA with residual right sided weakness History of hypothyroidism Plan: Start IV heparin as per cardiology NTG q6h Continue aspirin 81 mg p.o. Continue Plavix 75 mg p.o.daily Serial troponin and EKG to rule out ACS negative Continue home dose of lisinopril 20 mg p.o. daily and metoprolol Atorvastatin 80 mg daily Continue levothyroxine 125 mcg p.o. daily ECHO pending Cardiology consult appreciated Outpatient Endo referral for elevated T4 consider a cardiac catheterization DNR/DNI DVT prophylaxis Alps and subcutaneous heparin Heart healthy diet Problem List: 1. Chest pain Pain Ratin Pain Location: NA Pain Goal: Remain pain free Pain Plan: NA Tomorrow's Labs & Rationales: LINA CuevasGretchen blakezay 08/11/17 1348: Attending MD Review Statement Attending Statement Attending MD Statement: examined this patient, discuss w/resident/PA/CUSTOMER DATA TECHNICIAN, agreed w/resident/PA/CUSTOMER DATA TECHNICIAN, reviewed EMR data (avail), discussed with nursing Attending Assessment/Plan: Trop times 3 negative. pt still having pressure like chest pain. said it started again power press tender around 3 am. Also having some pain b/w the shoulder blades. Will f/u on cardio recommendations given the ongoing symptoms. f/u on echo results. CTA was negative. Pt will be given an endocrine appt as an outpatient.
[2017-08-11 08:46] LABS: GRANULOCYTE % 81.1 % (42.2-75.2)
[2017-08-11 09:03] LABS: WHITE BLOOD CELL COUNT 7.5 /CUMM (4.8-10.8)
[2017-08-11 14:51] VITALS: BP 130/72
--- NOTE | 2017-08-11 15:16 | PN- Cardiology ---
Subjective Subjective: * This patient has recurrent episodes of moderate chest discomfort associated with diaphoresis. * sinus rhythm * normal cardiac enzymes Objective Vital Signs and I&Os Vital Signs Date Time Temp Pulse Resp B/P B/P Pulse O2 O2 Flow FiO2 Mean Ox Delivery Rate 08/11 1451 97.6 46 20 130/72 97 Room Air 08/11 1043 64 120/70 08/11 1042 64 120/70 08/11 0723 98.3 56 18 124/88 91 Room Air 08/10 2229 98.6 71 22 130/84 91 08/10 1700 97.8 64 22 154/92 08/10 1631 97.6 70 18 180/92 95 Room Air 08/10 1609 71 180/90 08/10 1609 71 180/90 Intake & Output 08/11 1600 08/11 0800 08/11 0000 08/10 1600 08/10 0800 08/10 0000 Intake Total 110 250 0 Output Total Balance 110 250 0 Intake, IV 10 Intake, Oral 100 250 0 Patient 186 lb Weight Weight Reported by Patient Measurement Method Physical Exam: General: WD/overweight female in NAD; alert and oriented x 3 Neck: no JVD Heart: RRR Lungs: clear bilaterally Extremities: no edema Assessment/Plan Assessment/Plan * This patient has symptoms consistent with unstable angina. We will begin full anticoagulation with aspirin 325mg daily, Plavix 75mg daily and IV heparin. Continue a statin, Metoprolol and Lisinopril. Change NTG to paste 1inch Q 6 hours. This patient has multiple PVC's and abnormal R wave progression on multiple ECG's consistent with old posterior [place]. Would consider a cardiac catheterization for definitive treatment. We will monitor patient on the above medications over the weekend and allow reassessment by Dr. Brennan, her usual traffic analysis technician, on Sunday. Continue telemetry? Yes
[2017-08-11 22:32] VITALS: BP 138/90
[2017-08-12 04:42] LABS: ABSOLUTE BASOPHIL COUNT 0 /CUMM (0.0-0.2); ABSOLUTE EOSINOPHIL COUNT 0.1 /CUMM (0.0-0.7); ABSOLUTE GRANULOCYTE CT 3.9 /CUMM (1.4-6.5); ABSOLUTE LYMPH COUNT 3.2 /CUMM (1.2-3.4); ABSOLUTE MONOCYTE COUNT 0.5 /CUMM (0.10-0.60); BASOPHIL % 0 % (0.0-2.0); EOSINOPHIL % 1.5 % (0-5); GRANULOCYTE % 50.8 % (42.2-75.2); HEMATOCRIT 39.1 % (37-47); MEAN CORPUSCULAR HGB 28.7 PG (27.0-31.0); MEAN CORPUSCULAR HGB CONC 32.1 G/DL (33.0-37.0); MEAN CORPUSCULAR VOLUME 89.5 FL (81.0-99.0); MEAN PLATELET VOLUME 10.6 FL (7.4-10.4); PLATELET COUNT 146 /CUMM (130-400); RBC DISTRIBUTION WIDTH 14.7 % (11.5-14.5); RED BLOOD CELL CT 4.37 /CUMM (4.20-5.40); WHITE BLOOD CELL COUNT 7.7 /CUMM (4.8-10.8)
[2017-08-12 05:16] LABS: PTT 77 SEC (25-37)
[2017-08-12 07:24] VITALS: BP 158/78
--- NOTE | 2017-08-12 09:24 | PN- Housestaff ---
Merari MAKI,[facility] 08/12/17 0924: Subjective Follow-up For: Unstable angina Tele-Events Since Last Visit: Sinus bradycardia with PVCs and PACs Heart rate 58-86 Subjective: Patient continues to have substernal heaviness lasting couple of minutes and relieved with nitroglycerin. Last night she had an episode of chest tightness/ heaviness lasting about 15 minutes and also associated with difficulty breathing. Waiting to see Dr. Brennan on Sunday to find out about stress test versus catheterization. Review of Systems Constitutional: Reports: no symptoms. EENTM: Reports: no symptoms. Cardiovascular: Reports: chest pain. Respiratory: Reports: no symptoms. Gastrointestinal: Reports: no symptoms. Genitourinary: Reports: no symptoms. Musculoskeletal: Reports: no symptoms. Skin: Reports: no symptoms. Neurological/Psychological: Reports: no symptoms. Hematologic/Endocrine: Reports: no symptoms. Immunologic/Allergic: Reports: no symptoms. Objective Last 24 Hrs of Vital Signs/I&O Vital Signs Date Time Temp Pulse Resp B/P B/P Pulse O2 O2 Flow FiO2 Mean Ox Delivery Rate 08/12 1458 97.7 53 20 122/70 96 Room Air 08/12 0943 53 158/78 08/12 0938 53 158/78 08/12 0800 95 Nasal 1.0L Cannula 08/12 0724 98.4 53 20 158/78 95 Nasal Cannula 08/12 0000 98 Nasal 1.0L Cannula 08/11 2232 97.9 49 20 138/90 96 Nasal 1.0L Cannula Intake & Output 08/12 1600 08/12 0800 08/12 0000 Intake Total 560 360 400 Output Total 50 225 175 Balance 510 135 225 Intake, IV 160 160 Intake, Oral 400 200 400 Number 0 Bowel Movements Output, Urine 50 225 175 Patient 186 lb Weight Weight Bed scale Measurement Method Physical Exam General Appearance: Alert, Oriented X3, Cooperative, No Acute Distress Skin: No Rashes, No Breakdown HEENT: Atraumatic, PERRLA, EOMI Cardiovascular: Regular Rate, Normal S1, Normal S2 Lungs: Normal Air Movement Abdomen: Normal Bowel Sounds, Soft, No Tenderness Extremities: No Clubbing, No Cyanosis, No Edema Current Medications: Current Medications Sig/Brigitte Start time Last Medication Dose Route Stop Time Status Admin Alprazolam 0.25 MG ONCE ONE 08/11 2299 DC 08/11 PO 03/10 2301 2347 Aspirin Buffered 325 MG DAILY 08/13 1000 AC PO Aspirin Buffered 81 MG DAILY 08/10 1458 DC 08/12 PO 0937 Atorvastatin Calcium 80 MG 1700 08/10 1700 AC 08/11 PO 1754 Calcium Carbonate 500 MG ONCE ONE 08/11 1745 DC 08/11 PO 08/11 1746 1754 Clopidogrel Bisulfate 75 MG DAILY 08/10 1458 AC 08/12 PO 0937 Heparin Sodium 25,000 UNIT Q24H 08/11 1815 AC 08/11 (Porcine) IV 2035 Sodium Chloride 500 ML Levothyroxine Sodium 0.125 MG DAILY AC 08/11 0700 AC 08/12 PO 0645 Lisinopril 20 MG DAILY 08/10 1459 AC 08/12 PO 0938 Metoprolol Succinate 100 MG DAILY 08/10 1459 AC 08/12 PO 0943 Nitroglycerin 1 GM Q6 08/11 1804 AC 08/12 TOP 1252 Nitroglycerin 0.2 MG DAILY 08/10 1835 DC 08/11 TOP 1043 Last 24 Hrs of Lab/Georges Results Last 24 Hrs of Labs/Mics: Laboratory Tests 08/12/17 0400: Anion Gap 8, Estimated GFR > 60, BUN/Creatinine Ratio 35.0 H, APTT 77 H, CBC w Diff NO MAN DIFF REQ, RBC 4.37, MCV 89.5, MCH 28.7, MCHC 32.1 L, RDW 14.7 H, MPV 10.6 H, Gran % 50.8, Lymphocytes % 40.9, Monocytes % 6.8, Eosinophils % 1.5 , Basophils % 0, Absolute Granulocytes 3.9, Absolute Lymphocytes 3.2, Absolute Monocytes 0.5, Absolute Eosinophils 0.1, Absolute Basophils 0 08/11/17 2245: Troponin I < 0.01 Assessment/Plan Assessment: 82 years old female with past medical history of A. fib not on Coumadin, HTN, HLD, hypothyroidism, CVA last months with right residual weakness who presents to the ED complaining of chest pressure and shortness of breath Problem list: Unstable angina History of A. fib Hypertension Hyperlipidemia History of CVA with residual right sided weakness History of hypothyroidism Plan: Continue IV heparin, aspirin, Plavix, statin and metoprolol AND NTG q6h. ECHO pending Cardiology consult appreciated Outpatient Endo referral for elevated T4 Stress test versus cardiac catheterization tomorrow. Continue home dose of lisinopril 20 mg p.o. daily. Continue levothyroxine 125 mcg p.o. daily DNR/DNI DVT prophylaxis Alps and IV heparin Heart healthy diet Problem List: 1. Unstable angina Pain Ratin Pain Location: None Pain Goal: Remain pain free Pain Plan: None Tomorrow's Labs & Rationales: None MelinaGretchenzay 08/12/17 1429: Attending MD Review Statement Attending Statement Attending MD Statement: examined this patient, discuss w/resident/PA/HOT DIE PICKER, agreed w/resident/PA/HOT DIE PICKER, reviewed EMR data (avail), discussed with nursing, discussed with case mgmt Attending Assessment/Plan: Unstable angina- pt cont to have chest pain pressure like with diaphoresis and is releived with NTG. Started on iv heparin drip , on asa and plavix per cardiology. Pt changed to inpatient status and possible cardiac cath vs stress test on sunday per loop tacker. Will f/u on echo results.
--- NOTE | 2017-08-12 14:37 | PN- Cardiology ---
Subjective Subjective: * Patient noted severe chest pain last evening and complains of shortness of breath. * Normal cardiac enzymes. * sinus rhythm with PVC's Objective Vital Signs and I&Os Vital Signs Date Time Temp Pulse Resp B/P B/P Pulse O2 O2 Flow FiO2 Mean Ox Delivery Rate 08/12 0943 53 158/78 08/12 0938 53 158/78 08/12 0800 95 Nasal 1.0L Cannula 08/12 0724 98.4 53 20 158/78 95 Nasal Cannula 08/12 0000 98 Nasal 1.0L Cannula 08/11 2232 97.9 49 20 138/90 96 Nasal 1.0L Cannula 08/11 1451 97.6 46 20 130/72 97 Room Air Intake & Output 08/12 1600 08/12 0800 08/12 0000 08/11 1600 08/11 0800 08/11 0000 Intake Total 560 360 400 480 110 250 Output Total 50 225 175 500 Balance 510 135 225 -20 110 250 Intake, IV 160 160 10 Intake, Oral 400 200 400 480 100 250 Number 0 Bowel Movements Output, Urine 50 225 175 500 Patient 186 lb 186 lb Weight Weight Bed scale Reported by Patient Measurement Method Physical Exam: General: WD/overweight female in NAD; alert and oriented x 3 Neck: no JVD Heart: RRR Lungs: clear bilaterally Extremities: no edema Assessment/Plan Assessment/Plan * This patient has symptoms consistent with unstable angina. We continue full anticoagulation with aspirin 325mg daily, Plavix 75mg daily and IV heparin. Continue a statin, Metoprolol and Lisinopril. Continue NTG to paste at 1 inch Q 6 hours. This patient has multiple PVC's and abnormal R wave progression on multiple ECG's consistent with old posterior [place]. Would consider a cardiac catheterization for definitive treatment. We will monitor patient on the above medications over the weekend and allow reassessment by Dr. Brennan, her usual senior microsoft consultant, on Sunday. Continue telemetry? Yes
[2017-08-12 14:58] VITALS: BP 122/70
[2017-08-12 16:00] VITALS: BP 124/70
[2017-08-12 17:25] LABS: PTT 101 SEC (25-37)
[2017-08-12 22:50] VITALS: BP 126/74
[2017-08-13 02:06] LABS: PTT 57 SEC (25-37)
[2017-08-13 07:01] VITALS: BP 150/82
--- NOTE | 2017-08-13 07:06 | PN- Housestaff ---
Pierce MAKI,Vandana 08/13/17 0706: Subjective Follow-up For: Unstable angina Complaints: pain scale (0-10) Tele-Events Since Last Visit: Sinus bradycardia 4250, QRS 0.08, MI 0.16, PVC Subjective: Patient was seen and examined at bedside, she continues to complain of chest tightness after using the restroom, she also endorses nausea, sweating and chills. Still complaining of mild dry cough. She was noticed to be bradycardic in the range of 40, her morning dose of metoprolol had to be held. She is n.p.o. overnight for possible stress test. Review of Systems Constitutional: Reports: chills, diaphoresis. Denies: fever, malaise, weakness. Cardiovascular: Reports: chest pain. Denies: edema, orthopena, palpitations, peripheral edema. Respiratory: Reports: cough, short of breath. Denies: hemoptysis, orthopnea, sputum production, stridor, wheezing. Gastrointestinal: Denies: no symptoms. Genitourinary: Denies: no symptoms. Musculoskeletal: Denies: no symptoms. Skin: Denies: no symptoms. Objective Last 24 Hrs of Vital Signs/I&O Vital Signs Date Time Temp Pulse Resp B/P B/P Pulse O2 O2 Flow FiO2 Mean Ox Delivery Rate 08/13 0841 48 150/82 08/13 0841 48 150/82 08/13 0701 97.9 52 20 150/82 94 Room Air 08/12 2250 98.4 48 20 126/74 93 Room Air 08/12 1600 98.2 54 16 124/70 96 Room Air 08/12 1458 97.7 53 20 122/70 96 Room Air Intake & Output 08/13 1600 08/13 0800 08/13 0000 Intake Total 160 295 Output Total Balance 160 295 Intake, IV 100 75 Intake, Oral 60 220 Patient 185 lb Weight Weight Bed scale Measurement Method Physical Exam General Appearance: Alert, Oriented X3, Cooperative, No Acute Distress HEENT: Atraumatic, PERRLA, EOMI, Mucous Membr. moist/pink Neck: Supple, No JVD Cardiovascular: Normal S1, Normal S2, No Murmurs Lungs: Clear to Auscultation Abdomen: Normal Bowel Sounds, Soft, No Tenderness Neurological: Normal Speech, right hemiparesis due to recent stroke Extremities: No Clubbing, No Cyanosis, No Edema Vascular: Normal Pulses Assessment/Plan Assessment: 82 years old female with past medical history of A. fib not on Coumadin, HTN, HLD, hypothyroidism, CVA last months with right residual weakness who presents to the ED complaining of chest pressure and shortness of breath Problem list: Unstable angina History of A. fib Hypertension Hyperlipidemia History of CVA with residual right sided weakness History of hypothyroidism Plan: Continue IV heparin, Continue aspirin 81 mg p.o. Continue Plavix 75 mg p.o.daily Cont. Atorvastatin 80 mg daily Continue metoprolol XL 100 mg daily Continue home dose of lisinopril 20 mg p.o. daily. Continue nitroglycerin patch 1 inch every 6 hours ECHO pending Cardiology recommendation appreciated Outpatient Endo referral for elevated T4 Stress test versus cardiac catheterization today. Continue levothyroxine 125 mcg p.o. daily DNR/DNI DVT prophylaxis Alps and IV heparin Heart healthy diet Problem List: 1. Unstable angina Pain Ratin Pain Location: N/A Pain Goal: Remain pain free Pain Plan: pathway Tomorrow's Labs & Rationales: cbc bep DVT/Prophylaxis: mechanical, pharmacological Chaya Summers 08/13/17 1628: Attending MD Review Statement Attending Statement Attending MD Statement: examined this patient, discuss w/resident/PA/INTERACTIVE MEDIA MARKETING DIRECTOR, agreed w/resident/PA/INTERACTIVE MEDIA MARKETING DIRECTOR, reviewed EMR data (avail), discussed with nursing, discussed with case mgmt Attending Assessment/Plan: Pt seen and examined at bedside. Pt still having chest pressure currently at 3/ 10 and sob with diaphoresis. Pt seen by cardiology and they are arranging Persantine sestamibi stress test as soon as possible to rule out ischemia. If this shows significant ischemia, then cardiac catheterization would be indicated, d/w pt the care plan. cont with medical management as of now.
[2017-08-13 08:13] LABS: ABSOLUTE BASOPHIL COUNT 0 /CUMM (0.0-0.2); ABSOLUTE EOSINOPHIL COUNT 0.2 /CUMM (0.0-0.7); ABSOLUTE GRANULOCYTE CT 1.8 /CUMM (1.4-6.5); ABSOLUTE LYMPH COUNT 2.5 /CUMM (1.2-3.4); ABSOLUTE MONOCYTE COUNT 0.4 /CUMM (0.10-0.60); BASOPHIL % 0.6 % (0.0-2.0); EOSINOPHIL % 4.3 % (0-5); GRANULOCYTE % 36.9 % (42.2-75.2); HEMATOCRIT 36.6 % (37-47); MEAN CORPUSCULAR HGB 29.1 PG (27.0-31.0); MEAN CORPUSCULAR HGB CONC 32.7 G/DL (33.0-37.0); MEAN PLATELET VOLUME 10.9 FL (7.4-10.4); PLATELET COUNT 124 /CUMM (130-400); RED BLOOD CELL CT 4.11 /CUMM (4.20-5.40)
[2017-08-13 10:06] LABS: PTT 66 SEC (25-37)
--- NOTE | 2017-08-13 10:34 | ECHOCARDIOGRAM REPORT ---
AUTUMN CRUZ Age: 82 : 1935 Gender: F Exam Date: 08/12/2017 10:58 Exam Location: 1 [address] Ht (in): 56 Wt (lb): 186 BSA: 1.88 BP: 158 / 78 Ordering Physician: Arpita Perdomo MD Referring Physician: Alfonso Brennan MD Technologist: Nataliia Gomez [facility] Room Number: 172 Indications: CHEST PAIN Rhythm: Sinus Technical Quality: Technically difficult study FINDINGS Left Ventricle Normal size left ventricle. Mild concentric left ventricular hypertrophy. Normal left ventricular ejection fraction visually estimated at >60%. Normal left ventricular wall motion. Abnormal relaxation filling pattern of the left ventricle for age (stage 1 diastolic dysfunction). Right Ventricle Normal right ventricular size and function. Right Atrium Normal right atrial size. Left Atrium Normal left atrial size. Mitral Valve Mild to moderate mitral annular calcification. Trace mitral regurgitation. Aortic Valve Diffuse thickening (sclerosis) of the aortic valve cusps without reduced excursion. No aortic stenosis. No aortic regurgitation. Tricuspid Valve Tricuspid valve not well visualized, grossly normal. Mild tricuspid regurgitation. No evidence of pulmonary hypertension. Pulmonic Valve Pulmonic valve not well visualized, grossly normal. Trace pulmonic regurgitation. Pericardium No pericardial effusion. Great Vessels Normal size aortic root. CONCLUSIONS Mild concentric left ventricular hypertrophy. Normal left ventricular ejection fraction visually estimated at > 60%. Normal left ventricular wall motion. Abnormal relaxation filling pattern of the left ventricle for age (stage 1 diastolic dysfunction). Mild to moderate mitral annular calcification. Trace mitral regurgitation. Mild tricuspid regurgitation. Trace pulmonic regurgitation. No evidence of pulmonary hypertension. Alfonso Brennan M.D. (Electronically Signed) Final Date: 13 August 2017 10:33 MEASUREMENTS (Male / Female) Normal Values 2D ECHO LV Diastolic Diameter PLAX 4.5 cm 4.2 - 5.9 / 3.9 - 5.3 cm LV Systolic Diameter PLAX 3.0 cm 2.1 - 4.0 cm LV Fractional Shortening PLAX 33.3 % 25 - 46 % LV Ejection Fraction 2D Teich 62.1 % IVS Diastolic Thickness 1.2 cm LVPW Diastolic Thickness 1.2 cm LV Relative Wall Thickness 0.5 RV Internal Dim ED PLAX 2.8 cm 1.9 - 3.8 cm LVOT Diameter 2.1 cm Aortic Root Diameter 3.3 cm LA Volume 40.0 cm 18 - 58 / 22 - 52 cm Ascending Aorta Diameter 3.5 cm DOPPLER AV Peak Velocity 147.0 cm/s AV Peak Gradient 8.6 mmHg AV Mean Velocity 106.0 cm/s AV Mean Gradient 5.0 mmHg AV Velocity Time Integral 33.8 cm LVOT Peak Velocity 114.0 cm/s LVOT Peak Gradient 5.2 mmHg LVOT Mean Velocity 78.2 cm/s LVOT Mean Gradient 3.0 mmHg LVOT Velocity Time Integral 24.8 cm LVOT Stroke Volume 85.9 cm AV Area Cont Eq vti 2.5 cm AV Area Cont Eq pk 2.7 cm MV Peak Velocity 99.2 cm/s MV Peak Gradient 3.9 mmHg MV Mean Velocity 58.2 cm/s MV Mean Gradient 2.0 mmHg Mitral E Point Velocity 58.7 cm/s Mitral A Point Velocity 83.4 cm/s Mitral E to A Ratio 0.7 MV PHT Velocity 85.3 cm/s MV Deceleration [place] 347.0 cm/s MV Pressure Half Time 73.7 ms MV Area PHT 3.0 cm MV Deceleration Time 209.0 ms TR Peak Velocity 176.0 cm/s TR Peak Gradient 12.4 mmHg Right Atrial Pressure 5.0 mmHg Pulmonary Artery Systolic Pressu 17.4 mmHg Right Ventricular Systolic Press 17.4 mmHg PV Peak Velocity 81.3 cm/s PV Peak Gradient 2.6 mmHg PV Mean Velocity 56.2 cm/s PV Mean Gradient 1.0 mmHg PV Velocity Time Integral 20.2 cm LV E' Lateral Velocity 4.8 cm/s Mitral E to LV E' Lateral Ratio 12.2 LV E' Septal Velocity 4.3 cm/s Mitral E to LV E' Septal Ratio 13.7
--- NOTE | 2017-08-13 11:13 | PN- Cardiology ---
Subjective Subjective: The patient continues to complain of intermittent shortness of breath with associated chest tightness. She also complains of a long-standing cough which has been stable since she started lisinopril. No lightheadedness or dizziness. No palpitations. No diaphoresis. No nausea or vomiting. Objective Vital Signs and I&Os Vital Signs Date Time Temp Pulse Resp B/P B/P Pulse O2 O2 Flow FiO2 Mean Ox Delivery Rate 08/13 840 48 150/82 08/13 0841 48 150/82 08/13 0701 97.9 52 20 150/82 94 Room Air 08/12 2250 98.4 48 20 126/74 93 Room Air 08/12 1600 98.2 54 16 124/70 96 Room Air 08/12 1458 97.7 53 20 122/70 96 Room Air Intake & Output 08/13 1600 08/13 0800 08/13 0000 08/12 1600 08/12 0800 08/12 0000 Intake Total 160 295 560 360 400 Output Total 50 225 175 Balance 160 295 510 135 225 Intake, IV 100 75 160 160 Intake, Oral 60 220 400 200 400 Number 0 Bowel Movements Output, Urine 50 225 175 Patient 185 lb 186 lb Weight Weight Bed scale Bed scale Measurement Method Physical Exam: Gen: NAD HEENT: normal Lungs: clear to auscultation, normal resp. effort Heart: RRR, S1, S2, no murmurs Abdomen: Soft, nontender, no masses Extremities: No clubbing, cyanosis, or edema. Neuro: Alert and oriented x 3, cranial nerves intact Current Medications: Current Medications Sig/Brigitte Start time Last Medication Dose Route Stop Time Status Admin Aspirin Buffered 325 MG DAILY 08/13 1000 AC 08/13 PO 0841 Aspirin Buffered 81 MG DAILY 08/10 1458 DC 08/12 PO 0937 Atorvastatin Calcium 80 MG 1700 08/10 1700 AC 08/12 PO 1838 Clopidogrel Bisulfate 75 MG DAILY 08/10 1458 AC 08/13 PO 0841 Heparin Sodium 2,500 UNIT ONCE ONE 08/12 1700 CAN (Porcine) IV 08/12 170 Heparin Sodium 25,000 UNIT Q24H 08/11 1815 AC 08/12 (Porcine) IV 1904 Sodium Chloride 500 ML Levothyroxine Sodium 0.125 MG DAILY AC 08/11 0700 AC 08/13 PO 0614 Lisinopril 20 MG DAILY 08/10 1459 AC 08/13 PO 0841 Metoprolol Succinate 100 MG DAILY 08/10 1459 08/12 PO 0943 Nitroglycerin 1 GM Q6 08/11 1804 08/13 TOP 0614 Polyethylene Glycol 17 GM DAILY 08/12 1648 08/13 PO 0841 Senna 187 MG AT BEDTIME 08/12 1700 AC PO Results Last 48 Hrs of Labs/Mics: Laboratory Tests 08/13/17 0940: APTT 66 H 08/13/17 0632: Anion Gap 6, Estimated GFR > 60, BUN/Creatinine Ratio 27.1 H, CBC w Diff NO MAN DIFF REQ, RBC 4.11 L, MCV 89.0, MCH 29.1, MCHC 32.7 L, RDW 15.0 H, MPV 10.9 H, Gran % 36.9 L, Lymphocytes % 50.9, Monocytes % 7.3, Eosinophils % 4.3, Basophils % 0.6, Absolute Granulocytes 1.8, Absolute Lymphocytes 2.5, Absolute Monocytes 0.4, Absolute Eosinophils 0.2, Absolute Basophils 0 08/13/17 0115: APTT 57 H 08/12/17 1607: APTT 101 *H 08/12/17 0400: Anion Gap 8, Estimated GFR > 60, BUN/Creatinine Ratio 35.0 H, APTT 77 H, CBC w Diff NO MAN DIFF REQ, RBC 4.37, MCV 89.5, MCH 28.7, MCHC 32.1 L, RDW 14.7 H, MPV 10.6 H, Gran % 50.8, Lymphocytes % 40.9, Monocytes % 6.8, Eosinophils % 1.5 , Basophils % 0, Absolute Granulocytes 3.9, Absolute Lymphocytes 3.2, Absolute Monocytes 0.5, Absolute Eosinophils 0.1, Absolute Basophils 0 08/11/17 2245: Troponin I < 0.01 Recent Imaging Studies: Echocardiogram 08/13/17: Mild concentric left ventricular hypertrophy. Normal left ventricular ejection fraction visually estimated at > 60%. Normal left ventricular wall motion. Abnormal relaxation filling pattern of the left ventricle for age (stage 1 diastolic dysfunction). Mild to moderate mitral annular calcification. Trace mitral regurgitation. Mild tricuspid regurgitation. Trace pulmonic regurgitation. No evidence of pulmonary hypertension. CTA chest 08/10/17: No evidence for aortic dissection. Moderate calcific atherosclerotic disease unchanged. Small hiatal hernia unchanged. Assessment/Plan Assessment/Plan Assessment: 1. History of CVA 2. Hypertension 3. Shortness of breath with intermittent chest tightness. Troponin negative 4. No EKG changes 4. Premature ventricular contraction 5. Normal left ocular function on echocardiogram. CT angiogram is negative for aortic dissection and pulmonary embolism Plan: * Will arrange Persantine sestamibi stress test as soon as possible to rule out ischemia. If this shows significant ischemia, then cardiac catheterization would be indicated. * Continue IV heparin * Continue aspirin, Plavix, and clopidogrel * Decrease Toprol-XL to 50 mg daily given sinus bradycardia * Given the cough which is possibly secondary to FELICITA inhibitor, I recommend discontinuing lisinopril, and starting losartan 50 mg to Continue telemetry? Yes
[2017-08-13 15:13] VITALS: BP 130/80
[2017-08-13 22:28] VITALS: BP 128/68
[2017-08-13 23:06] LABS: PTT 69 SEC (25-37)
[2017-08-14 06:48] VITALS: BP 170/90
--- NOTE | 2017-08-14 07:16 | PN- Housestaff ---
Pierce MAKI,Vandana 08/14/17 0716: Subjective Follow-up For: Unstable angina Tele-Events Since Last Visit: Normal sinus rhythm, sinus bradycardia Subjective: Patient was seen and examined at bedside, febrile and still complains of mild discomfort of her chest and shortness of breath especially with moving. She will be going today for a stress test Review of Systems Constitutional: Reports: see HPI. Cardiovascular: Reports: chest pain. Respiratory: Reports: short of breath. Objective Last 24 Hrs of Vital Signs/I&O Vital Signs Date Time Temp Pulse Resp B/P B/P Pulse O2 O2 Flow FiO2 Mean Ox Delivery Rate 08/14 1123 60 150/80 08/14 0656 170/92 08/14 0648 97.8 47 20 170/90 94 Room Air 08/13 2228 98.0 54 20 128/68 94 Room Air 08/13 1513 97.7 60 20 130/80 96 Room Air Intake & Output 08/14 1600 08/14 0800 08/14 0000 Intake Total 252.8 184 Output Total Balance 252.8 184 Intake, IV 132.8 64 Intake, Oral 120 120 Patient 186 lb Weight Weight Bed scale Measurement Method Physical Exam General Appearance: Alert, Oriented X3, Cooperative, No Acute Distress HEENT: Atraumatic, PERRLA, EOMI, Mucous Membr. moist/pink Neck: Supple, No JVD Cardiovascular: Normal S1, Normal S2, No Murmurs Lungs: Clear to Auscultation Abdomen: Normal Bowel Sounds, Soft, No Tenderness Neurological: Normal Speech Extremities: No Clubbing, No Cyanosis, No Edema Vascular: Normal Pulses Assessment/Plan Assessment: 82 years old female with past medical history of A. 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 fib Hypertension Hyperlipidemia History of CVA with residual right sided weakness History of hypothyroidism Plan: Continue IV heparin, Continue aspirin 81 mg p.o. Continue Plavix 75 mg p.o.daily Cont. Atorvastatin 80 mg daily Continue metoprolol XL 100 mg daily Continue home dose of lisinopril 20 mg p.o. daily. Continue nitroglycerin patch 1 inch every 6 hours Cardiology recommendation appreciated Outpatient Endo referral for elevated T4 Stress test versus cardiac catheterization today. Continue levothyroxine 125 mcg p.o. daily DNR/DNI DVT prophylaxis Alps and IV heparin Heart healthy diet Problem List: 1. Unstable angina Pain Ratin Pain Location: chest Pain Goal: Remain pain free Pain Plan: pathway Tomorrow's Labs & Rationales: cbc bep DVT/Prophylaxis: mechanical, pharmacological Chaya Summers 08/14/17 1354: Attending MD Review Statement Attending Statement Attending MD Statement: examined this patient, discuss w/resident/PA/SEAMLESS HOSIERY KNITTER, agreed w/resident/PA/SEAMLESS HOSIERY KNITTER, reviewed EMR data (avail), discussed with nursing, discussed with case mgmt Attending Assessment/Plan: Will f/u on stress results today. d/w pt and family the care plan. If stress test is positive then we will plan for cardiac cath.
[2017-08-14 08:24] LABS: PTT 90 SEC (25-37)
[2017-08-14 08:47] LABS: ABSOLUTE BASOPHIL COUNT 0 /CUMM (0.0-0.2); ABSOLUTE EOSINOPHIL COUNT 0.2 /CUMM (0.0-0.7); ABSOLUTE GRANULOCYTE CT 1.6 /CUMM (1.4-6.5); ABSOLUTE LYMPH COUNT 2.2 /CUMM (1.2-3.4); ABSOLUTE MONOCYTE COUNT 0.3 /CUMM (0.10-0.60); BASOPHIL % 0.6 % (0.0-2.0); EOSINOPHIL % 5.3 % (0-5); GRANULOCYTE % 37.4 % (42.2-75.2); HEMATOCRIT 36.8 % (37-47); MEAN CORPUSCULAR HGB 29.4 PG (27.0-31.0); MEAN CORPUSCULAR HGB CONC 33.4 G/DL (33.0-37.0); MEAN CORPUSCULAR VOLUME 87.9 FL (81.0-99.0); MEAN PLATELET VOLUME 10.5 FL (7.4-10.4); PLATELET COUNT 133 /CUMM (130-400); RBC DISTRIBUTION WIDTH 14.9 % (11.5-14.5); RED BLOOD CELL CT 4.19 /CUMM (4.20-5.40); WHITE BLOOD CELL COUNT 4.4 /CUMM (4.8-10.8)
--- NOTE | 2017-08-14 11:09 | PN- Cardiology ---
Subjective Subjective: The patient had an episode of chest tightness last night. She reports that she is feeling well now. No shortness of breath. No palpitations. No nausea or vomiting. No diaphoresis. Objective Vital Signs and I&Os Vital Signs Date Time Temp Pulse Resp B/P B/P Pulse O2 O2 Flow FiO2 Mean Ox Delivery Rate 08/14 0656 170/92 08/14 0648 97.8 47 20 170/90 94 Room Air 08/13 2228 98.0 54 20 128/68 94 Room Air 08/13 1513 97.7 60 20 130/80 96 Room Air Intake & Output 08/14 1600 08/14 0800 08/14 0000 08/13 1600 08/13 0800 08/13 0000 Intake Total 252.8 184 260 160 295 Output Total 300 Balance 252.8 184 -40 160 295 Intake, IV 132.8 64 10 100 75 Intake, Oral 120 120 250 60 220 Number 1 Bowel Movements Output, Urine 300 Patient 186 lb 185 lb Weight Weight Bed scale Bed scale Measurement Method Physical Exam: Gen: NAD HEENT: normal Lungs: clear to auscultation, normal resp. effort Heart: RRR, S1, S2, no murmurs Abdomen: Soft, nontender, no masses Extremities: No clubbing, cyanosis, or edema. Neuro: Alert and oriented x 3, cranial nerves intact Current Medications: Current Medications Sig/Brigitte Start time Last Medication Dose Route Stop Time Status Admin Aspirin Buffered 325 MG DAILY 08/13 1000 AC 08/13 PO 0841 Atorvastatin Calcium 80 MG 1700 08/10 1700 AC 08/13 PO 2002 Clopidogrel Bisulfate 75 MG DAILY 08/10 1458 AC 08/13 PO 0841 Dipyridamole 50 MG ONE ONE 08/14 09 DC Dextrose/Water 30 ML IV 08/14 0901 Heparin Sodium 25,000 UNIT Q24H 08/11 1815 AC 08/12 (Porcine) IV 1904 Sodium Chloride 500 ML Levothyroxine Sodium 0.125 MG DAILY AC 08/11 0700 AC 08/14 PO 0621 Lisinopril 20 MG DAILY 08/10 1459 DC 08/13 PO 0841 Losartan Potassium 50 MG DAILY 08/14 1000 AC 08/14 PO 0656 Metoprolol Succinate 50 MG DAILY 08/14 1000 AC PO Metoprolol Succinate 100 MG DAILY 08/10 1459 DC 08/12 PO 0943 Nitroglycerin 1 GM Q6H 08/14 0200 08/14 TOP 0811 Nitroglycerin 1 GM Q6 08/11 1804 DC 08/13 [facility] 2000 Polyethylene Glycol 17 GM DAILY 08/12 1648 08/13 PO 0841 Senna 187 MG AT BEDTIME 08/12 1700 AC 08/13 PO 2100 Results Last 48 Hrs of Labs/Mics: Laboratory Tests 08/14/17 0650: Anion Gap 8, Estimated GFR > 60, BUN/Creatinine Ratio 23.3, APTT 90 H, CBC w Diff NO MAN DIFF REQ, RBC 4.19 L, MCV 87.9, MCH 29.4, MCHC 33.4, RDW 14.9 H, MPV 10.5 H, Gran % 37.4 L, Lymphocytes % 49.3, Monocytes % 7.4, Eosinophils % 5.3 H, Basophils % 0.6, Absolute Granulocytes 1.6, Absolute Lymphocytes 2.2, Absolute Monocytes 0.3, Absolute Eosinophils 0.2, Absolute Basophils 0 08/13/17 2141: APTT 69 H 08/13/17 0940: APTT 66 H 08/13/17 0632: Anion Gap 6, Estimated GFR > 60, BUN/Creatinine Ratio 27.1 H, CBC w Diff NO MAN DIFF REQ, RBC 4.11 L, MCV 89.0, MCH 29.1, MCHC 32.7 L, RDW 15.0 H, MPV 10.9 H, Gran % 36.9 L, Lymphocytes % 50.9, Monocytes % 7.3, Eosinophils % 4.3, Basophils % 0.6, Absolute Granulocytes 1.8, Absolute Lymphocytes 2.5, Absolute Monocytes 0.4, Absolute Eosinophils 0.2, Absolute Basophils 0 08/13/17 0115: APTT 57 H 08/12/17 1607: APTT 101 *H Assessment/Plan Assessment/Plan Assessment: 1. History of CVA 2. Hypertension 3. Shortness of breath with intermittent chest tightness. Troponin negative 4. No EKG changes 4. Premature ventricular contraction 5. Normal left ventricular function on echocardiogram. CT angiogram is negative for aortic dissection and pulmonary embolism Plan: * Persantine sestamibi stress test performed today. * Possible discharge home at the end of the day today if clinically stable and no significant ischemia on stress test. * If the nuclear stress test shows significant ischemia, then cardiac catheterization may be required. * Continue aspirin, Plavix, and clopidogrel * Continue Toprol-XL * Continue losartan * Follow up within 1 week if discharged Continue telemetry? Yes
--- NOTE | 2017-08-14 14:42 | Patient Discharge Instructions ---
See Addendum Discharge Instructions General Discharge Information You were seen/treated for: Unstable angina Special Instructions: 1please follow-up with your PCP in 1 week discharge 2please follow-up with your security control center operator in 1 week of discharge Diet Continue normal diet: Yes Recommended Diet: Heart Healthy Activity Full Activity/No Limits: Yes Acute Coronary Syndrome Inclusion Criteria At DC or during hospital stay patient has or had the following: ACS DIAGNOSIS Yes Discharge Core Measures Meds if any: Prescribed or Continued at Discharge FELICITA/ARB if EF <40% Yes Aspirin Yes Beta-Franca Yes Statin Yes Meds if any: NOT Prescribed or Continued at Discharge Congestive Heart Failure Inclusion Criteria At DC or during hospital stay patient has or had the following: CHF DIAGNOSIS No Discharge Core Measures Meds if any: Prescribed or Continued at Discharge Meds if any: NOT Prescribed or Continued at Discharge Cerebrovascular accident Inclusion Criteria At DC or during hospital stay patient has or had the following: CVA/TIA Diagnosis No Discharge Core Measures Meds if any: Prescribed or Continued at Discharge Meds if any: NOT Prescribed or Continued at Discharge Venous thromboembolism Inclusion Criteria VTE Diagnosis No VTE Type NONE VTE Confirmed by (Test) NONE Discharge Core Measures - Per Current guidelines, there needs to be overlap - treatment for the first 5 days of Warfarin therapy. - If discharged on Warfarin prior to 5 days of - overlap therapy, the patient will need to be - assessed for post discharge needs including - *Post discharge parental anticoagulation - *Warfarin and/or parental anticoagulation education - *Follow up date to check INR post discharge At least 5 days overlap therapy as Inpatient No Meds if any: Prescribed or Continued at Discharge Note: Overlap Therapy is Warfarin and Anticoagulant Meds if any: NOT Prescribed or Continued at Discharge
[2017-08-14 15:17] VITALS: BP 146/70
--- NOTE | 2017-08-14 15:49 | NUCLEAR MEDICINE REPORT ---
PERSANTINE STRESS AND RESTING SPECT MYOCARDIAL PERFUSION IMAGING STUDY WITH GATED SPECT IMAGES: CLINICAL INDICATION: Angina. PROCEDURE: Regional myocardial perfusion was assessed using a 1 day protocol. Stress images were obtained on 08/14/2017 following the intravenous administration of 17.5 mCi Tc 99m Myoview. Stress consisted of 50 mg Persantine given intravenously. Following the sestamibi injection, 125 mg aminophylline was given intravenously. Rest images were obtained 08/14/2017 following the intravenous administration of 30 mCi Technetium 99m Myoview. Single photon emission tomographic (SPECT) images were obtained. SPECT images were acquired in a 64 x 64 matrix of 64 projections over 180 degrees. These were reconstructed into standard short axis, horizontal and vertical long axis cardiac projections. FINDINGS: The post stress images demonstrate the left ventricular chamber to be normal in size. There is homogeneous distribution of activity in the left ventricular myocardium with no regions of abnormally decreased activity noted. The resting images also demonstrate homogeneous distribution of activity in the left ventricular myocardium, and are not significantly changed from the post stress images. The rest images were obtained using a gated SPECT technique, which permits visualization of wall motion and calculation of the left ventricular ejection fraction. No left ventricular wall motion abnormalities are noted on either the stress or resting study. The calculated left ventricular ejection fraction is 53% on the stress study. No previous study is available for comparison. IMPRESSION: Normal Persantine stress and resting myocardial perfusion study with normal left ventricular wall motion and ejection fraction.
[2017-08-14 21:57] VITALS: BP 132/70
[2017-08-15 02:13] VITALS: BP 138/80
[2017-08-15 06:51] VITALS: BP 170/90
--- NOTE | 2017-08-15 07:09 | PN- Housestaff ---
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 Cardiovascular: Denies: no symptoms. Respiratory: Denies: no symptoms. Objective Last 24 Hrs of Vital Signs/I&O Vital Signs Date Time Temp Pulse Resp B/P B/P Pulse O2 O2 Flow FiO2 Mean Ox Delivery Rate 08/15 0914 64 170/90 08/15 0914 64 170/90 08/15 0651 98.3 72 20 170/90 95 Room Air 08/15 0213 63 138/80 08/14 2157 98.0 55 20 132/70 95 08/14 1517 97.6 50 20 146/70 98 Intake & Output 08/15 1600 08/15 0800 08/15 0000 Intake Total 110 150 Output Total Balance 110 150 Intake, IV 10 Intake, Oral 100 150 Patient 182 lb Weight Physical Exam General Appearance: Alert, Oriented X3, Cooperative, No Acute Distress HEENT: Atraumatic, PERRLA, EOMI, Mucous Membr. moist/pink Neck: Supple, No JVD Cardiovascular: Normal S1, Normal S2, No Murmurs Lungs: Clear to Auscultation Abdomen: Normal Bowel Sounds, Soft, No Tenderness Neurological: Normal Speech, Normal Tone, Sensation Intact Extremities: No Clubbing, No Cyanosis, No Edema Vascular: Normal Pulses, Pulses Symmetrical Sepsis Peripheral Pulse Location: Radial Assessment/Plan Assessment: 82 years old female with past medical history of A. 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 fib Hypertension Hyperlipidemia History of CVA with residual right sided weakness History of hypothyroidism Plan: Stress test was normal yesterday, IV heparin drip was discontinued Continue aspirin 81 mg p.o. Continue Plavix 75 mg p.o.daily Cont. Atorvastatin 80 mg daily Continue metoprolol XL 50 mg daily Start amlodipine 5 mg p.o. daily Increase losartan to 50 daily for better control of blood pressure DC nitroglycerin patch, patient will be discharged on sublingual nitroglycerin as needed for chest pain Cardiology recommendation appreciated Outpatient Endo referral for elevated T4 Continue levothyroxine 125 mcg p.o. daily Patient is stable to be discharged home today DNR/DNI DVT prophylaxis Alps and IV heparin Heart healthy diet Problem List: 1. Unstable angina 2. Hypothyroid Pain Ratin Pain Location: N/A Pain Goal: Remain pain free Pain Plan: pathway Tomorrow's Labs & Rationales: N/A Chaya Summers 08/15/17 1307: Attending MD Review Statement Attending Statement Attending MD Statement: examined this patient, discuss w/resident/PA/BPO SPECIALIST, agreed w/resident/PA/BPO SPECIALIST, reviewed EMR data (avail), discussed with nursing, discussed with case mgmt Attending Assessment/Plan: Pt stress test was negative for reversible ischemia. D/w pt and mortarman Dr Maher the care plan. Pt will be dced home and we have restarted her norvasc and her lisinopril was changed to losartan . pt will be given s/l NTG prn for chest pain which is pressure like. Went over the medication changes with the patient.
[2017-08-15 08:14] LABS: ABSOLUTE BASOPHIL COUNT 0 /CUMM (0.0-0.2); ABSOLUTE EOSINOPHIL COUNT 0.2 /CUMM (0.0-0.7); ABSOLUTE GRANULOCYTE CT 1.7 /CUMM (1.4-6.5); ABSOLUTE LYMPH COUNT 1.7 /CUMM (1.2-3.4); ABSOLUTE MONOCYTE COUNT 0.3 /CUMM (0.10-0.60); BASOPHIL % 0.5 % (0.0-2.0); EOSINOPHIL % 4.7 % (0-5); GRANULOCYTE % 43.5 % (42.2-75.2); HEMATOCRIT 38.2 % (37-47); MEAN CORPUSCULAR HGB 29.3 PG (27.0-31.0); MEAN CORPUSCULAR HGB CONC 33.3 G/DL (33.0-37.0); MEAN CORPUSCULAR VOLUME 88.1 FL (81.0-99.0); MEAN PLATELET VOLUME 10.3 FL (7.4-10.4); PLATELET COUNT 147 /CUMM (130-400); RBC DISTRIBUTION WIDTH 14.6 % (11.5-14.5); RED BLOOD CELL CT 4.33 /CUMM (4.20-5.40); WHITE BLOOD CELL COUNT 3.9 /CUMM (4.8-10.8)
--- NOTE | 2017-08-15 08:50 | IV DIPYRIDAMOLE NUCLEAR STRESS ---
Date Procedure Performed: 08/14/17 Clinical Diagnosis: Angina Bicycle Mechanic: Sanchez Barbosa IV DIPYRIDAMOLE INFUSED: 50 mg IV AMINOPHYLLINE INFUSED: 125 mg PATIENT WEIGHT: 185 lbs INTERPRETATION: The patient's baseline EKG showed normal sinus rhythm at 69 BPM. Baseline B/P 142/90. The patient received 50 mg of dipyridamole infused intravenously over a 4 minute period. TC99M Myoview was injected after dipyridamole infusion. The patient complained of headache. There were no EKG changes following pharmacologic infusion. Arrhythmias: Premature ventricular contractions. IMPRESSION: The test was supervised by the interpreting Core Loader, who was in attendance during the entire test. No EKG evidence of stress induced myocardial ischemia. See separately dictated Nuclear Report.
[2017-08-15] MEDS ORDERED: COZAAR100 M1 PO (11:06)
[2017-08-15] MEDS ORDERED: NITROGLYCERIN0.3 MG SL (11:06)
--- NOTE | 2017-08-15 11:12 | Discharge Summary ---
Visit Information Visit Dates Admission Date: 08/12/17 Discharge Date: 08/15/17 Hospital Course Course Attending Physician: Chaya Summers MD Primary Care Physician: Tanvir Briones MD Hospital Course: 82 years old female with past medical history of A. 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 Patient reports that the symptoms awoke her from sleep. She describes the chest tightness as pressure on the left side of her chest which was 10/10 in severity, not related to breathing or lying down on her back. Which was associated with exertional progressively worsening shortness of breath (as per the patient experienced SOB after walking 20 steps). ED course: Vital signs: Blood pressure 186/94, pulse 69, temp 97.9, respiratory rate 18, pulse ox 96 on room air Labs on admission: CBC was normal with WBC 3.9, hemoglobin 13.5, platelet 164, INR 1.22, troponin less than 0.01, BEP was normal with sodium 144, potassium 4, BUN 16, creatinine 0.7 Chest x-ray: Cardiomegaly, no acute cardiopulmonary finding compared to the previous CT on April 2017 CTA chest: No evidence for aortic dissection. Moderate calcific atherosclerotic disease unchanged. Small hiatal hernia unchanged. Echo: Mild concentric left ventricular hypertrophy. Normal left ventricular ejection fraction visually estimated at > 60%. Normal left ventricular wall motion. Abnormal relaxation filling pattern of the left ventricle for age (stage 1 diastolic dysfunction). Mild to moderate mitral annular calcification. Trace mitral regurgitation. Mild tricuspid regurgitation. Trace pulmonic regurgitation. No evidence of pulmonary hypertension. NUC - MYOCARDIAL PERFUSION IMAGING Normal Persantine stress and resting myocardial perfusion study with normal left ventricular wall motion and ejection fraction. The patient was admitted to telemetry for treatment of the following conditions Problem list: Unstable angina History of A. fib Hypertension Hyperlipidemia Possible hyperthyroidism History of CVA with residual right sided weakness History of hypothyroidism She was treated with: Initially she was treated with IV heparin drip, after the results of the stress test came back negative heparin drip was discontinued and she was kept only on subcutaneous heparin 5000 units q. 8 for DVT prophylaxis Aspirin 81 mg p.o. Plavix 75 mg p.o.daily Atorvastatin 80 mg daily metoprolol XL 50 mg daily amlodipine 5 mg p.o. daily was restarted losartan to 50 daily for better control of blood pressure Dnitroglycerin patch, which was discontinued on discharge, patient was discharged on sublingual nitroglycerin as needed for chest pain Continue levothyroxine 125 mcg p.o. 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 fib Hypertension Hyperlipidemia Possible hyperthyroidism History of CVA with residual right sided weakness History of hypothyroidism Discharge Disposition: home or self care Discharge Instructions General Discharge Information Code Status: Do Not Resucitate/Intubat Patient's Diet: Heart healthy Patient's Activity: As tolerated Follow-Up Instructions/Appts: 1please follow-up with your PCP in 1 week discharge 2please follow-up with your income tax expert in 1 week of discharge 3please follow-up with ranch supervisor in 1 week of discharge Medications at Discharge Discharge Medications: Stop taking the following medications: Metoprolol Succinate (Metoprolol Succinate) 100 MG TAB.ER.24H ORAL DAILY Lisinopril (Prinivil) 20 MG TABLET ORAL DAILY Continue taking these medications: Aspirin (Ecotrin*) 81 MG TABLET.DR 1 Tablet ORAL DAILY Comments: Last Taken:08/15/17 Time:9AM Clopidogrel Bisulfate (Plavix) 75 MG TABLET 75 Milligram ORAL DAILY Qty = 30 Comments: Last Taken:08/15/17 Time:9AM Atorvastatin Calcium (Lipitor) 40 MG TABLET 2 Tablet ORAL DAILY Qty = 60 Comments: Last Taken:08/14/17 Time:5PM Levothyroxine Sodium (Synthroid) 125 MCG TABLET 1 Tablet ORAL DAILY BEFORE BREAKFAST Qty = 60 Comments: Last Taken:08/15/17 Time:6AM Ranitidine HCl (Zantac) 150 MG TABLET 1 Tablet ORAL DAILY Comments: NOT TAKEN WHILE IN HOSPITAL Cholecalciferol (Vitamin D3) (Vitamin D3) 50,000 UNIT CAPSULE 1 Tablet ORAL ONCE A WEEK Instructions: TAKE ON Comments: NOT TAKEN WHILE IN HOSPITAL Start taking the following new medications: Metoprolol Succ XL (Toprol Xl) 50 MG TAB 50 Milligram ORAL DAILY Qty = 30 No Refills Amlodipine Besylate (Amlodipine Besylate) 5 MG TABLET 5 Milligram ORAL DAILY Qty = 30 No Refills Losartan Potassium (Losartan Potassium) 50 MG TABLET 50 Milligram ORAL DAILY Qty = 30 No Refills Nitroglycerin (Nitroglycerin) 0.3 MG TAB.SUBL 1 Tablet SUBLINGUAL EVERY SIX HOURS NEEDED as needed for chest pain Qty = 90 No Refills Copies To: Anselmo MAKI,Tanvir Varela
--- NOTE | 2017-08-15 11:26 | PN- Cardiology ---
Subjective Subjective: The patient is doing well today. She had protracted nausea and vomiting after the Persantine nuclear stress test yesterday. This resolved around midnight. Doing well today. Blood pressure remains up. On the high side at 160-170 systolic. Objective Vital Signs and I&Os Vital Signs Date Time Temp Pulse Resp B/P B/P Pulse O2 O2 Flow FiO2 Mean Ox Delivery Rate 08/15 0914 64 170/90 08/15 0914 64 170/90 08/15 0651 98.3 72 20 170/90 95 Room Air 08/15 0213 63 138/80 08/14 2157 98.0 55 20 132/70 95 08/14 1517 97.6 50 20 146/70 98 Intake & Output 08/15 1600 08/15 0800 08/15 0000 08/14 1600 08/14 0800 08/14 0000 Intake Total 110 150 500 252.8 184 Output Total Balance 110 150 500 252.8 184 Intake, IV 10 100 132.8 64 Intake, Oral 100 150 400 120 120 Patient 182 lb 186 lb Weight Weight Bed scale Measurement Method Physical Exam: General Appearance Alert, Oriented X3, Cooperative, No Acute Distress, anxious HEENT Atraumatic, PERRLA, EOMI, Mucous Membr. moist/pink Neck Supple, No JVD, carotids normal bilaterally Cardiovascular Normal S1, Normal S2, 1/6 systolic murmur, ventricular ectopy Lungs Clear to Auscultationand percussion bilaterally Abdomen Normal Bowel Sounds, Soft, No Tenderness Neurological Normal /nonfocal Extremities No Clubbing, No Cyanosis, 1+pitting edema Vascular Normal Pulses Current Medications: Current Medications Sig/Brigitte Start time Last Medication Dose Route Stop Time Status Admin Aspirin Buffered 325 MG DAILY 08/13 1000 AC 08/15 PO 0914 Atorvastatin Calcium 80 MG 1700 08/10 1700 AC 08/14 PO 1620 Clopidogrel Bisulfate 75 MG DAILY 08/10 1458 AC 08/15 PO 0914 Heparin Sodium 5,000 UNIT Q8 08/14 2200 AC 08/15 (Porcine) SC 0600 Heparin Sodium 25,000 UNIT Q24H 08/11 1815 DC 08/12 (Porcine) IV 1904 Sodium Chloride 500 ML Levothyroxine Sodium 0.125 MG DAILY AC 08/11 0700 AC 08/15 PO 0600 Losartan Potassium 100 MG DAILY 08/16 1000 DC PO Losartan Potassium 50 MG DAILY 08/16 1000 UNVr PO Losartan Potassium 50 MG ONCE ONE 08/15 1115 CAN PO 08/15 1116 Losartan Potassium 50 MG DAILY 08/14 1000 DC 08/15 PO 0914 Metoprolol Succinate 50 MG DAILY 08/14 1000 AC 08/15 PO 0914 Nitroglycerin 1 GM Q6H 08/14 0200 DC 08/15 TOP 0914 Omeprazole 20 MG DAILY AC PRN 08/14 2045 AC 08/14 PO 2157 Polyethylene Glycol 17 GM DAILY 08/12 1648 AC 08/14 PO 1123 Senna 187 MG AT BEDTIME 08/12 1700 AC 08/13 PO 2100 Trimethobenzamide HCl 200 MG TID PRN 08/14 1630 AC 08/14 IM 1636 Results Last 48 Hrs of Labs/Mics: Laboratory Tests 08/15/17 0646: Anion Gap 7, Estimated GFR > 60, BUN/Creatinine Ratio 18.6, CBC w Diff NO MAN DIFF REQ, RBC 4.33, MCV 88.1, MCH 29.3, MCHC 33.3, RDW 14.6 H, MPV 10.3, Gran % 43.5, Lymphocytes % 43.7, Monocytes % 7.6, Eosinophils % 4.7, Basophils % 0.5, Absolute Granulocytes 1.7, Absolute Lymphocytes 1.7, Absolute Monocytes 0.3, Absolute Eosinophils 0.2, Absolute Basophils 0 08/14/17 0650: Anion Gap 8, Estimated GFR > 60, BUN/Creatinine Ratio 23.3, APTT 90 H, CBC w Diff NO MAN DIFF REQ, RBC 4.19 L, MCV 87.9, MCH 29.4, MCHC 33.4, RDW 14.9 H, MPV 10.5 H, Gran % 37.4 L, Lymphocytes % 49.3, Monocytes % 7.4, Eosinophils % 5.3 H, Basophils % 0.6, Absolute Granulocytes 1.6, Absolute Lymphocytes 2.2, Absolute Monocytes 0.3, Absolute Eosinophils 0.2, Absolute Basophils 0 08/13/17 2141: APTT 69 H Assessment/Plan Assessment/Plan Assessment: 1. Chest discomfort syndrome-so far, the patient's cardiac evaluation is been entirely unrevealing. Serially negative troponins; no echo findings; negative Persantine nuclear stress test. As noted previously, the patient was having frequent ventricular ectopy in the emergency room which did seem to correlate with some of her symptoms. She has been free of significant ectopy over the last 48 hours. 2. Hypertension 3. History of prior stroke 4. Ventricular ectopy 5. History of atrial fibrillation Recommendations: -From a cardiac standpoint, the patient appears to be stable for discharge. Her cardiac workup has been thus far negative. -Continue losartan and metoprolol at current doses -Restart amlodipine at prehospital dosing for improved blood pressure control -Eliminate nitroglycerin paste -Prescription for sublingual nitroglycerin at discharge. -Follow-up with Dr. Brennan 1-2 weeks post discharge. Continue telemetry? No
[2017-08-15] MEDS ORDERED: AMLODIPINE BESYL5 M1 PO (12:05)
[2017-08-15] MEDS ORDERED: LOSARTAN POTASS50 M1 PO (12:05)
[2017-08-15] MEDS ORDERED: TOPROL XL50 M1 PO (12:05)
[2017-08-15 14:08] VITALS: BP 182/80
[2017-08-15 14:14] VITALS: BP 182/80
== END 2017-08-15 16:43 | DRG 311 ==
LOC: ERH 10:02 → ERHI 12:51 → ENRESERV 14:48 → ENTRNSPT 16:23 → EDTRNSPT 16:27 → EDTRNSPTSTS 16:33 → 1NO 16:33 → ERHI 16:33 → 1NO 16:33 → EDTRNSPT 16:33 → CMPTRNSPT 16:45 → 1NO 08-11 09:07 → ENPENDDIS 08-15 11:39 → ENTRNSPT 08-15 16:26 → EDTRNSPTSTS 08-15 16:35 → 1NO 08-15 16:43 → CMPTRNSPT 08-15 16:53
PROVIDERS: Emergency Medicine; Hospitalist; Internal Medicine; Internal Medicine Interventional Cardiology; Student in an Organized Health Care Education/Training Program
DX: I20.0 Unstable angina (principal); I69.351 Hemiplegia and hemiparesis following cerebral infarction affecting right dominant side; I48.2 Chronic atrial fibrillation; Z68.41 Body mass index [BMI] 40.0-44.9, adult; E03.9 Hypothyroidism, unspecified; E78.5 Hyperlipidemia, unspecified; G43.909 Migraine, unspecified, not intractable, without status migrainosus; I10 Essential (primary) hypertension; E66.9 Obesity, unspecified; I49.3 Ventricular premature depolarization; Z88.5 Allergy status to narcotic agent; Z91.013 Allergy to seafood; Z79.82 Long term (current) use of aspirin; Z90.710 Acquired absence of both cervix and uterus; Z98.51 Tubal ligation status; H26.9 Unspecified cataract; N20.0 Calculus of kidney; R00.1 Bradycardia, unspecified
CPT/HCPCS: 1NP; 6020; 36415; 36592; 71045; 78452; 82436; 84481; 93005; 93010; 93016; 93017; 93306; A9502; G0378; J1200; J1245; J1644; J2930; J3250; J3490; J7508